=== PATIENT | female | born 1980 ===

== ENCOUNTER → 2018-10-09 | Outpatient (CLI) | payer OTHER ==
[2018-10-09 14:57] VITALS: BP 151/97; PULSE 80; RESP 18; TEMP 98.2; BMI 36.3
--- NOTE | 2018-10-09 15:53 | P.PN ---
Progress Note - Text Progress Note Date: 10/09/18 Michaela is a 37-year-old white female who underwent an ultrasound-guided core biopsy of a 1.7 cm highly suspicious mass at the 6 o'clock position in the right breast. Pathology revealed a grade 2 invasive ductal carcinoma. The lesion is ER/UT positive and HER-2 negative. The patient on ultrasound report is noted to have a upper outer quadrant 6 mm middle depth second lesion for which targeted ultrasound was recommended after biopsy results. If this lesion is seen on ultrasound a second ultrasound biopsy is recommended. If it is not seen on ultrasound we will address whether a stereo biopsy would be warranted. The pathology results of been discussed in detail with the patient. She understands and options have been given to her including lumpectomy with radiation therapy versus mastectomy plus or minus reconstruction. The patient at this time wishes a lumpectomy with radiation therapy to be performed. Of concern is the fact that the patient is 37 years old and we have talked about BRCA1 testing. The patient states that even if she were BRCA1 positive she would not have a mastectomy nor bilateral mastectomy at this time. She could be BRCA1 tested in the future. The patient also would undergo a sentinel node biopsy possible axillary node dissection. She understands the risks and benefits of this procedure. The patient is going to have a focused ultrasound of the right breast with attention to the possible 6 mm upper outer quadrant area performed today. Depending on results of this will depend whether further biopsy via stereo or proceeding to surgical intervention will be performed. Physical examination: Puncture site in the right breast is clean and dry evidence of any infection Impression: 1. 1.7 cm invasive ductal carcinoma right breast 2. Possible second site in the right breast for which targeted ultrasound is being performed Plan: 1. Probable lumpectomy of with radiation therapy sentinel node biopsy possible axillary node dissection 2. Patient does not wish to have BRCA1 testing done at this time 3. Complete evaluation of possible second site in the right breast to be evaluated with radiology prior to surgical intervention CC: Dr. Hooper
--- NOTE | 2018-10-09 16:03 | P.PN ---
Progress Note - Text Progress Note Date: 10/09/18 Addendum: Patient had a targeted ultrasound performed of the right breast. This did reveal a second area of concern for which ultrasound core biopsy is recommended. This will be scheduled in the near future. Depending on results of this the final surgical procedure may be altered.
--- NOTE | 2018-10-12 10:00 | USB ---
Reason for exam: clinical finding. History: Patient has history of breast cancer at age 37. Malignant US biopsy breast VAD RT of the right breast, September 29, 2018. Physical Findings: Breast exam performed by Dr. Copeland. US Breast RT Right complete breast ultrasound includes all four quadrants, the retroareolar region and axilla. Finding demonstrates a 16 x 13 x 20mm irregular lesion at 6 o'clock, biopsied and a 10 x 6 x 9mm solid, hypoechoic lesion at 10 o'clock for which a biopsy is recommended. These results were verbally communicated with the patient and result sheet given to the patient on 10/09/18. ASSESSMENT: Suspicious, BI-RAD 4 RECOMMENDATION: Ultrasound core biopsy of the right breast. Called with mammographic findings and has scheduled an appointment for the patient for 10/20/18 at 2:[address] Copeland. PRELIMINARY REPORT CALLED AND FAXED TO DR. COPELAND ON 10/12/18.
== END | disposition home or self-care (01) ==
LOC: WWCWWP 14:36 → MERGE 14:36
PROVIDERS: ATTEND Surgery
DX: R92.8 Other abnormal and inconclusive findings on diagnostic imaging of breast (principal)

== ENCOUNTER → 2018-10-20 | Day surgery (SDC) | payer OTHER ==
[2018-10-20 13:43] VITALS: RESP 16; BMI 36.3
[2018-10-20 15:03] VITALS: BP 145/84; PULSE 79; TEMP 98.2
--- NOTE | 2018-10-20 15:06 | USB ---
EXAMINATION TYPE: US biopsy breast VAD RT, MG diagnostic mammo RT wo CAD DATE OF EXAM: 10/20/2018 CLINICAL HISTORY: R92.8 ABNORMAL MAMMOGRAM. Abnormal ultrasound. Recently diagnosed right breast cancer on biopsy September 29, 2018 TECHNIQUE: Ultrasound guided core biopsy of right breast with clip placement and follow-up diagnostic two-view mammogram. COMPARISON: NONE FINDINGS: The procedure of ultrasound guided fine-needle aspiration and/or core biopsy was explained to the patient. Benefits, alternatives, and risks were discussed. An informed consent was then obtained. The patient was placed in supine positioning for imaging and for the procedure. Preprocedure imaging redemonstrates oval heterogeneous hypoechoic 8 x 6 mm lesion 10:00 position zone A. The overlying skin was prepped and draped in usual sterile fashion. Lidocaine buffered with bicarbonate was used as anesthetic into the skin and subcutaneous tissue up to area of concern in the right breast. Attempts at ultrasound guided fine-needle aspiration utilizing 18- gauge spinal needle were unsuccessful in aspirating fluid. At this point further anesthetic with lidocaine with epinephrine is given. Under ultrasound guidance, a 12-gauge vacuum assisted biopsy gun device was used to obtain 3 core samples. Following this, a biopsy clip was left in lesion. The patient tolerated the procedure well without any immediate complication. The patient was kept in the radiology department for short stay after the procedure and then discharged home in stable condition. Postprocedure mammogram shows successful deployment of second clip upper outer quadrant middle depth in the right breast. IMPRESSION: Successful, uncomplicated ultrasound guided core biopsy of second area of concern in the right breast, full pathology results to follow. Low to intermediate index of suspicion for this second lesion noted at time of procedure. Pathology Results: Benign RIGHT BREAST, TEN O'CLOCK, ULTRASOUND GUIDED CORE BIOPSY: Fibroadenoma/ fibroadenomatoid hyperplasia with associated columnar cell hyperplasia and background fibrocystic changes. Recommendation Follow up mammogram of the right breast in 6 months. BELLA
== END ==
LOC: MERGE 13:26 → RADUSWWP 13:26
PROVIDERS: ATTEND Surgery
DX: D24.1 Benign neoplasm of right breast (principal)
CPT/HCPCS: 88305; 77065; 19083; A4648; J2001

== ENCOUNTER → 2018-10-23 | Outpatient (CLI) | payer OTHER ==
[2018-10-23 11:24] VITALS: BP 158/104; PULSE 85; RESP 18; TEMP 99; BMI 36.3
== END ==
LOC: WWCWWP 10:32 → MERGE 10:32
PROVIDERS: ATTEND Surgery
DX: Z53.9 Procedure and treatment not carried out, unspecified reason (principal)

== ENCOUNTER 2018-10-27 06:32 | Day surgery (SDC) | payer OTHER ==
--- NOTE | 2018-10-23 11:49 | P.GSHP ---
History of Present Illness H&P Date: 10/23/18 Chief Complaint: Right breast cancer The patient is a 37-year-old white female who underwent a screening mammogram of the breast in July 2018. Was noted in the middle third of the right breast deep and below the nipple at the 6 o'clock position that she had an area of irregular focal asymmetry with an indistinct margin. An ultrasound was performed which revealed that the area was 1.7 cm in size. A core biopsy was obtained which revealed that this was a grade 2 invasive ductal carcinoma. The lesion was ER/GA positive and HER-2 negative. The patient was noted to have a second area in the right breast approximately 6 mm depth in the upper outer quadrant lesion for which ultrasound core biopsy was recommended this was performed on 10/20/2018 and was a 9. It revealed fibroadenomatoid/fibroadenoma hyperplasia with associated columnar cell hyperplasia and background fibrocystic changes. The patient herself did not feel any lesions of concern in her breast. She had no history of nipple discharge or skin changes. She no history of recent trauma to her breast or any history of infection in the breast. Despite the fact that she is 37 years old she did not want to undergo BRCA1 her genetic testing. She stated that she would not have a mastectomy if she could possibly have a lumpectomy even if she was a BRCA1 positive and may consider doing this in the future. The patient's case was presented at tumor board. Family history: 1. Maternal grandmother breast cancer postmenopausal Hormonal history: Menarche: 12 Pregnancies: 4, 3 children, one miscarriage first live at 20, press-fit: Yes Periods: Regular control pills: 20 years Hormones: None Past surgical history: 1. Cholecystectomy 2. Appendectomy Social history: Smoking: Negative Alcohol: Occasional Drugs: Negative - Constitutional Constitutional: Denies chills, Denies fever - EENT Eyes: denies blurred vision, denies pain Ears: deny: decreased hearing, tinnitus Ears, nose, mouth and throat: Denies headache, Denies sore throat - Breasts Breasts: bilateral: as per HPI - Cardiovascular Cardiovascular: Denies chest pain, Denies shortness of breath - Respiratory Respiratory: Denies cough, Denies 7 - Gastrointestinal Gastrointestinal: Denies abdominal pain, Denies diarrhea, Denies nausea, Denies vomiting - Genitourinary (Female) Genitourinary: Denies dysuria, Denies hematuria - Menstruation Menstruation: Reports period normal - Musculoskeletal Musculoskeletal: Denies myalgias - Integumentary Integumentary: Denies pruritus, Denies rash - Neurological Neurological: Denies numbness, Denies weakness - Psychiatric Psychiatric: Reports anxiety, Reports depression - Endocrine Endocrine: Denies fatigue, Denies weight change - Hematologic/Lymphatic Comment: none - Allergic/Immunologic Allergic/Immunologic: Reports seasonal allergies Past Medical History Past Medical History: No Reported History History of Any Multi-Drug Resistant Organisms: None Reported Past Surgical History: Appendectomy, Cholecystectomy Past Anesthesia/Blood Transfusion Reactions: No Reported Reaction Past Psychological History: No Psychological Hx Reported Smoking Status: Former smoker Past Alcohol Use History: Occasional Past Drug Use History: None Reported - Past Family History Mother Additional Family Medical History / Comment(s): maternal grandmother with breast cancer Medications and Allergies Home Medications Medication Instructions Recorded Confirmed Type Melatonin 5 mg PO HS 09/11/18 10/23/18 History Norgestimate-Ethinyl Estradiol 1 tab PO HS 09/11/18 10/23/18 History [Sprintec 28 Day Tablet] Vortioxetine Hydrobromide 20 mg PO HS 09/11/18 10/23/18 History [Trintellix] Cyclobenzaprine [Flexeril] 10 mg PO TID PRN 10/20/18 10/23/18 History Allergies Allergy/AdvReac Type Severity Reaction Status Date / Time Quinolones Allergy Rash/Hives Verified 10/23/18 11:19 Surgical - Exam - General obese - Eyes normal ocular movement, no icteric - ENT no hearing loss, no congestion - Neck no masses, trachea midline - Respiratory normal respiratory effort, clear to auscultation - Cardiovascular Rhythm: regular Heart Sounds: normal: S1, S2 - Abdomen Abdomen: soft, non tender, no guarding, no rigid, no rebound - Integumentary No icterus no abnormal pigmentation - Neurologic no disoriented, no combative - Musculoskeletal normal gait, normal posture - Psychiatric oriented to time, oriented to person, oriented to place, speech is normal, memory intact Breast examination: Right breast: Multi-positional exam no dominant masses or nodules of concern Right axilla: No adenopathy of concern Left breast: Multi-positional exam no dominant masses or nodules of concern Left axilla: No adenopathy of concern Tattoo noted across her back Results Radiographs reviewed, pathology results reviewed Assessment and Plan Assessment: Impression: 1. Right breast 1.7 cm invasive ductal carcinoma 2. Depression/anxiety 3. Premenopausal breast cancer recommended for genetic counseling patient does not want to do this at this time Plan: 1. Right breast needle localization lumpectomy, injection for sentinel node biopsy sentinel node biopsy possible axillary node dissection 2. Medical management of medical problems Cc:
[2018-10-23 14:08] VITALS: BMI 36.3
[~2018-10-27 06:32] MED LIST: DEXAMETHASONE SOD PHOSPHATE 10 MG/ML 1 ML VIAL IV ONE; HEPARIN SODIUM,PORCINE 5,000 UNIT/ML 1 ML VIAL SQ ONE; LACTATED RINGERS 1,000 ML IV SCH; LIDOCAINE 1% 20 ML VIAL (10MG/ML) FOR IV START INTRADERMA PRN; MIDAZOLAM 2 MG/2 ML VIAL IV PRN; ONDANSETRON 4 MG/2 ML VIAL IVP ONE; Pre Op ABX Message 1 EACH MISC MISCELLANE ONE; SCOPOLAMINE 1.5MG/72HR PATCH TRANSDERM ONE
[2018-10-27] MEDS ORDERED: ALPRAZolam 0.5 MG TAB PO ONE (07:14)
[2018-10-27] MEDS ORDERED: diphenhydrAMINE 50 MG/ML 1 ML VIAL IVP ONE ×2 (08:10→14:01)
[2018-10-27] MEDS ORDERED: SODIUM BICARB 4% 5 ML VIAL (0.48 MEQ/ML) MISCELLANE ONE (08:27)
[2018-10-27] MEDS ORDERED: LIDOCAINE 1% INJ 10MG/ML (20 ML MDV) SQ ONE (08:27)
--- NOTE | 2018-10-27 08:56 | NM ---
EXAMINATION TYPE: NM sentinel node injection DATE OF EXAM: 10/27/2018 COMPARISON: 09/29/2018 HISTORY: Right-sided breast cancer. TECHNIQUE AND FINDINGS: The procedure of sentinel lymph node injection was explained to the patient. The benefits, alternatives, and risks were discussed. An informed consent was then obtained. Overlying skin is cleaned with sterile alcohol. Following this, 534 uCi Tc99m Tilmanocept was inject ed in the upper outer aspect of the right nipple intradermally. The patient tolerated the procedure well without any immediate complication. The patient was kept in the radiology department for short stay after the procedure and then taken to surgery for surgical p rocedure what is presumed intraoperative gamma probe will be used for sentinel lymph node detection. IMPRESSION: Right breast radiotracer injection for sentinel node localization as above.
[2018-10-27] MEDS ORDERED: PHENYLEPHRINE-0.9% NACL SYG 1 MG/10 ML SYRINGE ONE (09:38)
[2018-10-27] MEDS ORDERED: HYDROmorphone (PF) 1 MG/ML ONE (09:38)
[2018-10-27] MEDS ORDERED: ROCURONIUM BROMIDE 10 MG/ML 10 ML VIAL IV ONE (09:38)
[2018-10-27] MEDS ORDERED: fentaNYL (PF) 50 MCG/ML 2 ML AMP ONE (09:38)
[2018-10-27] MEDS ORDERED: PROPOFOL 10 MG/ML 20 ML VIAL IV ONE (09:38)
[2018-10-27] MEDS ORDERED: ePHEDrine SULFATE/0.9% NACL/PF 50 MG/5 ML SYRINGE IV ONE (09:38)
[2018-10-27] MEDS ORDERED: LIDOCAINE 1% INJ 10MG/ML (20 ML MDV) ONE (09:38)
[2018-10-27] MEDS ORDERED: HEPARIN SODIUM,PORCINE 5,000 UNIT/ML 1 ML VIAL SQ ONE (09:47)
--- NOTE | 2018-10-27 09:49 | P.NAPBC ---
NAPBC Queries - NAPBC Queries Was patient's case review presented at [facility] tumor board? If no, comment.: Yes Was patient's pathology reviewed at [facility]? If no, comment.: Yes Was breast conservation surgery offered? If no, comment.: Yes Was sentinel node biopsy offered? If no, comment.: Yes Was diagnosis confirmed by percutaneous core biopsy? If no, comment.: Yes If mastectomy patient, was a preop referral to a reconstructive surgeon offered? : Yes (not a mastectomy patient)
[2018-10-27] MEDS ORDERED: LACTATED RINGERS 1,000 ML IV ONE (10:27)
--- NOTE | 2018-10-27 12:20 | P.OP ---
Date of Procedure: 10/27/18 Preoperative Diagnosis: Right breast cancer Postoperative Diagnosis: Same Procedure(s) Performed: Injection of methylene blue for lymphatic mapping, right axillary node dissection, needle localization lumpectomy with placement of BioSorb and tissue transfer Implants: biozorb Anesthesia: GETA Surgeon: Leigh Copeland Estimated Blood Loss (ml): 25 IV fluids (ml): 1,000 Pathology: other (Right breast tissue, axillary contents right) Condition: stable Disposition: PACU Indications for Procedure: Biopsy-proven right breast cancer Operative Findings: Dense breast tissue, suspicious palpable right axillary adenopathy Description of Procedure: The patient is a 37-year-old white female who underwent a core biopsy of an area of concern in the right breast. This was positive for invasive ductal carcinoma. Secondary underwent a core biopsy which was benign. Although the patient is 37 she defer genetic testing and wished only to proceed with lumpectomy possible sentinel node biopsy possible axillary node dissection. The patient was taken to the operating room and following induction of general anesthesia the neoprobe was used to interrogate the right axilla. No radioactivity was noted in the axilla although the patient had received an injection of the radioactive substance in radiology. There was radioactivity in the circumareolar area. Therefore 5 mL of half-strength methylene blue was used to inject the periareolar region and the breast was massaged for 3 minutes. Following this the breast and axilla were prepped and draped in a sterile fashion. The area of the axilla was approached initially. An incision was made and carried down to the pectoralis muscle. This was followed inferiorly into the axillary region. Again the region was interrogated using the neoprobe and no radioactivity was identified. Likewise no blue lymph node was identified. There was however palpable adenopathy and therefore an axillary dissection was performed. The pectoralis muscle was followed superiorly to the axillary vein. The tissues were then swept inferiorly being careful to identify and preserve the area of the long thoracic and thoracodorsal nerves. Several intercostal brachial nerves were excised in the process. The specimen was removed. After assured that hemostasis was attained the wound was irrigated. Otherwise Surgicel was placed in the area. The wound was again irrigated. No evidence of bleeding was identified. A #10 SHERRY drain was placed in the deep tissues were closed using 3-0 Vicryl suture. The skin was closed with a 4-0 Monocryl followed by Mike a nylon suture. The drain was secured using a nylon suture. Following this the area of the breast was approached. An incision was made and carried down to the hook of the needle. The surrounding tissue was excised. Posteriorly dissection was carried to the chest wall. The specimen was removed and sent for radiographic evaluation. The area of concern was removed. Prior to sending the specimen was painted for orientation. Following this the wound was irrigated. After assured that hemostasis was attained it was measured for a BioSorb placement. A 3 x 3 BioSorb was chosen. This was placed and the inferior tissues were freed to facilitate closure. Approximately 4 cm x 2 cm of tissue were freed. The deep tissues were closed using 3-0 Vicryl suture securing the BioSorb. The area was closed in layers. The skin was closed using a subcu tenia 4-0 Vicryl suture followed by subcuticular 4-0 Monocryl. Steri-Strips were applied. The patient tolerated the procedure in stable condition. All instrument and sponge counts were correct at the end of the case.
[2018-10-27] MEDS ORDERED: SODIUM CHLORIDE 0.9% 1,000 ML IV ONE ×2 (12:30)
[2018-10-27] MEDS: HYDROmorphone 0.5 MG/0.5 ML SYRINGE IVP PRN ×2 (12:47→12:56)
--- NOTE | 2018-10-27 12:47 | MM ---
EXAMINATION TYPE: MG pre op needle loc RT DATE OF EXAM: 10/27/2018 COMPARISON: 09/29/2018 CLINICAL HISTORY: 1.7 cm right-sided mass at the 6:00 position representing biopsy-proven invasive ductal carcinoma (grade 2) and ductal carcinoma in situ marked with a ribbon-shaped biopsy marker. TECHNIQUE: Needle localization with wire placement and surgical excision of area of concern in the right breast. FINDINGS: The procedure of needle localization with wire placement and than surgical excision was explained to the patient. Benefits, alternatives, and risks were discussed. An informed consent was then obtained. Preprocedural timeout was performed. The shortest pathway for procedure was chosen. Shortest pathway was medial to lateral approach. The overlying skin was prepped and draped in usual sterile fashion. Lidocaine buffered with bicarbonate was used as anesthetic into the skin and subcutaneous tissue up to the level of area of concern. A 7 cm needle was used. It was placed via a medial to lateral approach under mammographic guidance. Subsequent 90 degrees mammogram show the needle to be in satisfactory position relative to the targeted area. At this point, wire was placed and the needle was withdrawn. The wire was fixed to patient's skin. Images were marked for surgeon. The patient tolerated the procedure well without any immediate complication. The patient was kept in the radiology department for short stay after the procedure and then taken to surgery for surgical excision. Targeted ribbon- shaped biopsy marker, mammographic mass and wire are identified in specimen mammogram. The patient was kept in hospital for short stay after the procedure and then discharged home in stable condition. IMPRESSION: Successful, uncomplicated needle localization with wire placement and surgical excision of the targeted ribbon-shaped biopsy marker, mammographic mass in one year in the right breast at the 6:00 position representing the biopsy-proven invasive ductal carcinoma and DCIS, full pathology results to follow. Pathology Results: Malignant A. RIGHT AXILLARY CONTENTS, DISSECTION: Five of six lymph nodes positive for metastatic ductal adenocarcinoma with multiple areas of extranodal extension. B. RIGHT AXILLARY LYMPH NODE: One lymph node negative for metastatic adenocarcinoma. C. RIGHT BREAST, NEEDLE LOCALIZATION BIOPSY: 2.9 x 2.0 x 1.0 cm in greatest dimension moderately differentiated (Grade 2 of 3) infiltrating ductal carcinoma within 0.4 mm of the blue-green inked anterior inferior margin of resection. Lymph vascular space permeation as well as perineural space invasion is identified. Breast ancillary studies performed on [id number]. See Surgical Pathology Cancer Case Summary. Recommendation Appropriate oncologic management. MTDD
[2018-10-27] MEDS: MEPERIDINE 50 MG/ML SYRINGE IVP ONE ×2 (13:17→13:31)
[2018-10-27] MEDS ORDERED: NALOXONE 0.4 MG/ML 1 ML VIAL IV PRN (13:57)
[2018-10-27] MEDS ORDERED: HYDROmorphone 1 MG/ML 1 ML SYRINGE IV PRN (13:57)
[2018-10-27] MEDS ORDERED: ONDANSETRON 4 MG/2 ML VIAL IVP PRN (13:57)
[2018-10-27] MEDS: DEXTROSE 5%-0.45% NACL 1,000 ML IV SCH (17:20)
[2018-10-27] MEDS: HEPARIN SODIUM,PORCINE 5,000 UNIT/ML 1 ML VIAL SQ SCH ×2 (17:21→23:34)
[2018-10-27] MEDS: HYDROcodone/APAP 5-325MG 1 EACH TAB PO PRN (19:36)
[2018-10-27 21:10] VITALS: RESP 16
[2018-10-28] MEDS: DEXTROSE 5%-0.45% NACL 1,000 ML IV SCH (00:08)
[2018-10-28] MEDS: HYDROcodone/APAP 5-325MG 1 EACH TAB PO PRN (04:17)
--- NOTE | 2018-10-28 07:27 | P.PN ---
Subjective Progress Note Date: 10/28/18 Principal diagnosis: Right breast cancer Patient is a 37-year-old white female status post right breast lumpectomy and right axillary node dissection postop day #1. Postoperatively she is doing well. She is tolerating diet without difficulty. Her SHERRY drain is serous in nature. Objective - Vital Signs Vital signs: Vital Signs Temp 98.6 F 10/28/18 04:00 Pulse 82 10/28/18 04:00 Resp 16 10/28/18 04:00 BP 140/90 10/28/18 04:00 Pulse Ox 94 L 10/27/18 17:25 Intake & Output 10/27/18 10/28/18 10/28/18 18:59 06:59 18:59 Intake Total 1750 Output Total 182 290 Balance 1568 -290 Weight 111.584 kg Intake: IV 1750 Output: Drainage 7 40 Right Arm 7 40 Urine 150 250 Estimated Blood Loss 25 Other: # Voids 200 1 - Constitutional General appearance: Present: obese - EENT Eyes: Present: EOMI ENT: Present: hearing grossly normal - Respiratory Respiratory: bilateral: CTA - Cardiovascular Rhythm: regular Heart sounds: normal: S1, S2 - Gastrointestinal General gastrointestinal: Present: soft - Psychiatric Psychiatric: Present: A&O x's 3, appropriate affect, intact judgment & insight - Additional findings Additional findings: Incision axilla clean and dry, SHERRY drain serous Incision breast clean and dry No evidence of any infection Assessment and Plan Assessment: Impression: 1. Right breast 1.7 cm invasive ductal carcinoma 2. Depression/anxiety 3. Premenopausal breast cancer recommended for genetic counseling patient does not want to do this at this time 4. Postop day #1 right breast lumpectomy and axillary node dissection Plan: 1. Discharge home to be followed as an outpatient 2. Medical management of medical problems 3. Tis patient drain care Cc:
--- NOTE | 2018-10-28 07:37 | P.DS ---
Providers Date of admission: 10-27-18 Expected date of discharge: 10/28/18 Attending physician: Leigh Copeland Consults: 10/27/18 14:00 Consult Physician Routine Consulting Provider: Efrain Stewart Consult Reason/Comments: medical managment Do you want consulting provider notified?: Yes Primary care physician: [facility] Course: The patient is a 37-year-old white female who underwent a right breast lumpectomy and axillary node dissection. Postoperatively she has done well and is stable for discharge. Her pain is well-controlled. She is tolerating her diet without difficulty. Her SHERRY drain has serous drainage, 30 cc . Plan - Discharge Summary New Discharge Prescriptions: No Action Vortioxetine Hydrobromide [Trintellix] 20 mg PO HS Norgestimate-Ethinyl Estradiol [Sprintec 28 Day Tablet] 1 tab PO HS Melatonin 5 mg PO HS Cyclobenzaprine [Flexeril] 10 mg PO TID PRN PRN Reason: Pain ALPRAZolam [Xanax] 0.25 mg PO TID PRN PRN Reason: Anxiety Discharge Medication List Melatonin 5 mg PO HS 09/11/18 [History] Norgestimate-Ethinyl Estradiol [Sprintec 28 Day Tablet] 1 tab PO HS 09/11/18 [ History] Vortioxetine Hydrobromide [Trintellix] 20 mg PO HS 09/11/18 [History] Cyclobenzaprine [Flexeril] 10 mg PO TID PRN 10/20/18 [History] ALPRAZolam [Xanax] 0.25 mg PO TID PRN 10/23/18 [History] Follow up Appointment(s)/Referral(s): Leigh Copeland MD [STAFF PHYSICIAN] - 1-2 Days Activity/Diet/Wound Care/Special Instructions: do not drive until seen by DR. Orta may shower after 48 hours teach drain care Discharge Disposition: HOME SELF-CARE
[2018-10-28] MEDS: HEPARIN SODIUM,PORCINE 5,000 UNIT/ML 1 ML VIAL SQ SCH (07:54)
[2018-10-28 08:56] VITALS: BP 145/97; PULSE 77; TEMP 98.5
--- NOTE | 2018-11-05 08:01 | MM ---
MG Surgical Specimen RT EXAMINATION TYPE: MG pre op needle loc RT DATE OF EXAM: 10/27/2018 COMPARISON: 09/29/2018 CLINICAL HISTORY: 1.7 cm right-sided mass at the 6:00 position representing biopsy-proven invasive ductal carcinoma (grade 2) and ductal carcinoma in situ marked with a ribbon-shaped biopsy marker. TECHNIQUE: Needle localization with wire placement and surgical excision of area of concern in the right breast. FINDINGS: The procedure of needle localization with wire placement and than surgical excision was explained to the patient. Benefits, alternatives, and risks were discussed. An informed consent was then obtained. Preprocedural timeout was performed. The shortest pathway for procedure was chosen. Shortest pathway was medial to lateral approach. The overlying skin was prepped and draped in usual sterile fashion. Lidocaine buffered with bicarbonate was used as anesthetic into the skin and subcutaneous tissue up to the level of area of concern. A 7 cm needle was used. It was placed via a medial to lateral approach under mammographic guidance. Subsequent 90 degrees mammogram show the needle to be in satisfactory position relative to the targeted area. At this point, wire was placed and the needle was withdrawn. The wire was fixed to patient's skin. Images were marked for surgeon. The patient tolerated the procedure well without any immediate complication. The patient was kept in the radiology department for short stay after the procedure and then taken to surgery for surgical excision. Targeted ribbon-shaped biopsy marker, mammographic mass and wire are identified in specimen mammogram. The patient was kept in hospital for short stay after the procedure and then discharged home in stable condition. IMPRESSION: Successful, uncomplicated needle localization with wire placement and surgical excision of the targeted ribbon-shaped biopsy marker, mammographic mass in one year in the right breast at the 6:00 position representing the biopsy-proven invasive ductal carcinoma and DCIS, full pathology results to follow. RECOMMENDATION: Surgical consultation of the right breast. Appropriate oncologic management. BELLA
== END 2018-10-28 09:20 | disposition home or self-care (01) ==
LOC: OR 06:32 → MERGE 06:32 → 4FBP 12:11 → OR 10-28 09:20
PROVIDERS: ATTEND Surgery
DX: C50.911 Malignant neoplasm of unspecified site of right female breast (principal); Z17.0 Estrogen receptor positive status [ER+]; C77.3 Secondary and unspecified malignant neoplasm of axilla and upper limb lymph nodes; F41.9 Anxiety disorder, unspecified; Z80.3 Family history of malignant neoplasm of breast; Z87.891 Personal history of nicotine dependence; Z79.3 Long term (current) use of hormonal contraceptives; Z79.899 Other long term (current) drug therapy; Z88.1 Allergy status to other antibiotic agents
CPT/HCPCS: 81025; 88307; 76098; 19281; 38792; 19301; 38525; 15777; A4648; A9520; J1200; J1644 ×2; J1100; J2175; J2405; J2001; J3010; J1170 ×2; J2370; J2704

== ENCOUNTER → 2018-10-30 | Outpatient (CLI) | payer OTHER ==
[2018-10-30 09:32] VITALS: BP 150/95; PULSE 79; RESP 18; TEMP 98.5; BMI 36.3
--- NOTE | 2018-10-30 10:05 | P.PN ---
Progress Note - Text Progress Note Date: 10/30/18 Deedee is a 37-year-old white female status post right breast lumpectomy and axillary node dissection on [id number]. Postoperatively she has done well with no complaints. Her SHERRY drain output has been minimal and serous in nature. The patient's pain is controlled with [place]. Physical examination: Lungs: Clear Heart: Regular rate and rhythm Abdomen: Soft Incision: Axilla clean and dry, SHERRY drain serous Breast right slightly boggy and mild erythema of the skin felt to be related to the methylene blue injection Incision right breast clean and dry Impression: 1. Patient postop day #3 right breast lumpectomy Axillary Node dissection 2. Patient doing well at this time Plan: 1. SHERRY drain removed 2. appointment with medical and radiation oncology 3. Follow-up here in approximately 10 days Pathology is pending at this time further recommendation depending on results of the pathology CC: Dr. Rufus Moore
== END | disposition home or self-care (01) ==
LOC: WWCWWP 09:05 → MERGE 14:20
PROVIDERS: ATTEND Surgery
DX: Z53.9 Procedure and treatment not carried out, unspecified reason (principal)

== ENCOUNTER → 2018-11-07 | Outpatient (CLI) | payer OTHER ==
--- NOTE | 2018-11-09 10:23 | PE ---
EXAMINATION TYPE: PET CT fusion skull to thigh DATE OF EXAM: 11/07/2018 COMPARISON: There are no prior CTs at this location for comparison. Prior PET/CT: There are no prior PET CTs at this location for comparison. HISTORY: Breast cancer TECHNIQUE: Following the intravenous administration of 10.87 mCi of F-18 FDG, whole body images are performed from the skull base to the midthigh. Images are reviewed on the computer in the coronal, a xial, and sagittal planes. Reconstructed rotating images are created on independent workstation and reviewed on the computer. A localization and attenuation correction CT is performed in conjunction with the PET scan. DLP: 467.04 mGycm SCAN: Initial Blood glucose: 79 mg/dL Average Mediastinum SUV: 1.5 Average Liver SUV: 2.58 FINDINGS: NECK: No abnormal uptake THORAX: No abnormal uptake. There is some mild inflammatory change at the right axillary tail surgery site. ABDOMEN: No abnormal uptake PELVIS: No abnormal uptake OSSEOUS STRUCTURES: No abnormal uptake LOCALIZATION CT: There is a 7.9 x 4.2 cm hypoechoic dense collection lateral to the pectoralis muscle s within the axillary tail on the right breast could be a seroma or hematoma. There are some small ax illary lymph nodes present on the right. The ascending thoracic aorta at the level of main pulmonary artery is 3.2 cm patent main pulmonary artery the bifurcation is 2.9 cm. COMPARISON: No comparison studies. IMPRESSION: 1. No suspicious uptake to suggest metastatic disease. 2. Suspected hematoma or seroma at the surgery site right axillary breast
== END | disposition home or self-care (01) ==
LOC: RADPETMAIN 14:23
PROVIDERS: ATTEND Internal Medicine Hematology & Oncology
DX: C50.511 Malignant neoplasm of lower-outer quadrant of right female breast (principal)
CPT/HCPCS: 78815; A9552

== ENCOUNTER → 2018-11-12 | Outpatient (CLI) | payer OTHER ==
[2018-11-12 15:23] VITALS: BP 138/91; PULSE 88; RESP 20; TEMP 99; BMI 35.7
--- NOTE | 2018-11-12 15:56 | P.PN ---
Subjective Progress Note Date: 11/12/18 Patient is a 37-year-old white female status post right breast axillary dissection and right breast lumpectomy on [id number]. She had 5 of 7 nodes positive for metastatic ductal adenocarcinoma. She had multiple areas of extranodal extension. The lumpectomy site revealed a 2.9 cm cancer grade 2 of 3 within 0.4 mm of the blue-green anterior anterior/inferior margin of resection. There was no tumor on ink. There was DCIS within 0.6 mm of the anterior margin. Her case will be presented at tumor board. She is recommended to undergo chemotherapy and radiation therapy. She wishes to forego additional excision if possible. Objective - Vital Signs Vital signs: Vital Signs Temp 99 F 11/12/18 15:16 Pulse 88 11/12/18 15:16 Resp 20 11/12/18 15:16 BP 138/91 11/12/18 15:16 Pulse Ox 100 11/12/18 15:16 Intake & Output 11/11/18 11/12/18 11/12/18 18:59 06:59 18:59 Weight 109.769 kg - Constitutional General appearance: Present: obese - EENT Eyes: Present: EOMI ENT: Present: hearing grossly normal - Respiratory Respiratory: bilateral: CTA - Cardiovascular Rhythm: regular Heart sounds: normal: S1, S2 - Integumentary Integumentary Comment(s): Axillary incision, slightly swollen, incision clean and dry no evidence of infection Breast; incision clean and dry Assessment and Plan Assessment: Impression: 1. Postop right breast axillary dissection and lumpectomy Plan: 1. Represent case at tumor board 2. Follow-up with medical oncology and radiation oncology 3. Follow-up in 3 months CC: Dr. Hooper
== END ==
LOC: WWCWWP 14:35 → MERGE 14:40
PROVIDERS: ATTEND Surgery
DX: Z53.9 Procedure and treatment not carried out, unspecified reason (principal)

== ENCOUNTER 2018-11-20 08:30 | Day surgery (SDC) | payer OTHER ==
[2018-11-19 09:14] VITALS: BMI 36.1
--- NOTE | 2018-11-20 07:56 | P.GSHP ---
History of Present Illness H&P Date: 11/20/18 CHIEF COMPLAINT: Lymphoma. HISTORY OF PRESENT ILLNESS: The patient is a 37-year-old female diagnosed with breast cancer. She needs a Mediport placement for chemotherapy. PAST MEDICAL HISTORY: See list PAST SURGICAL HISTORY: See list CURRENT MEDICATIONS: See list. ALLERGIES: See list. SOCIAL HISTORY: No active tobacco or alcohol use. FAMILY HISTORY: Noncontributory. REVIEW OF ORGAN SYSTEMS: CONSTITUTIONAL: Has weight loss. PHYSICAL EXAMINATION: Vital signs: Stable GENERAL: Well developed and in no acute distress. Pleasant. HEENT: No sclera icterus. Extraocular movements grossly intact. Moist buccal mucosa. Head is atraumatic, normocephalic. Hears conversational speech. No nasal drainage. NECK: Supple without lymphadenopathy. No JV distention. CHEST: Non-labored respirations and equal bilateral excursions. CARDIOVASCULAR: Regular rate and rhythm. Palpable 2+ radial pulses. ABDOMEN: Nontender. MUSCULOSKELETAL: No clubbing, cyanosis or edema. NEUROLOGIC: No focal or lateralizing signs. PSYCH: Appropriate affect. Alert and oriented to person, place and time. ASSESSMENT: 1. Breast cancer 2. Need for chemotherapeutic access. PLAN: 1. Agree with Port-A-Cath placement. Past Medical History Past Medical History: Cancer Additional Past Medical History / Comment(s): Right Breast Cancer 10/2018 History of Any Multi-Drug Resistant Organisms: None Reported Past Surgical History: Appendectomy, Breast Surgery, Cholecystectomy Additional Past Surgical History / Comment(s): Right Breast Lumpectomy 10/2018 Past Anesthesia/Blood Transfusion Reactions: No Reported Reaction Smoking Status: Former smoker - Past Family History Mother Additional Family Medical History / Comment(s): Maternal grandmother with breast cancer. Medications and Allergies Home Medications Medication Instructions Recorded Confirmed Type Melatonin 5 mg PO HS 09/11/18 11/19/18 History Norgestimate-Ethinyl Estradiol 1 tab PO HS 09/11/18 11/19/18 History [Sprintec 28 Day Tablet] Vortioxetine Hydrobromide 20 mg PO HS 09/11/18 11/19/18 History [Trintellix] Cyclobenzaprine [Flexeril] 10 mg PO TID PRN 10/20/18 11/19/18 History ALPRAZolam [Xanax] 0.25 mg PO TID PRN 10/23/18 11/19/18 History Elderberry Fruit and Flower [Black 1 each PO DAILY 11/19/18 11/19/18 History Elderberry 575 mg Cap] Allergies Allergy/AdvReac Type Severity Reaction Status Date / Time Quinolones Allergy Rash/Hives Verified 11/19/18 08:23
[~2018-11-20 08:30] MED LIST changes: -DEXAMETHASONE SOD PHOSPHATE 10 MG/ML 1 ML VIAL IV ONE; -HEPARIN SODIUM,PORCINE 5,000 UNIT/ML 1 ML VIAL SQ ONE; -ONDANSETRON 4 MG/2 ML VIAL IVP ONE; -SCOPOLAMINE 1.5MG/72HR PATCH TRANSDERM ONE; +ceFAZolin IN SWFI 2 GM/20 ML SYRINGE IVP ONE; +fentaNYL (PF) 50 MCG/ML 2 ML AMP IV PRN; +fentaNYL (PF) 50 MCG/ML 2 ML AMP IVP PRN
[2018-11-20 09:12] VITALS: RESP 16; TEMP 98.1
[2018-11-20] MEDS ORDERED: ONDANSETRON 4 MG/2 ML VIAL IVP ONE (09:14)
[2018-11-20] MEDS ORDERED: fentaNYL (PF) 50 MCG/ML 2 ML AMP ONE (10:48)
[2018-11-20] MEDS ORDERED: PROPOFOL 10 MG/ML 20 ML VIAL IV ONE (10:48)
[2018-11-20] MEDS ORDERED: LIDOCAINE 1% INJ 10MG/ML (20 ML MDV) ONE (10:48)
[2018-11-20] MEDS ORDERED: MIDAZOLAM 2 MG/2 ML VIAL ONE (10:48)
[2018-11-20] MEDS ORDERED: ceFAZolin 1,000 MG VIAL ONE (10:48)
[2018-11-20] MEDS ORDERED: KETAMINE 10 MG/ML 20 ML VIAL ONE (10:48)
[2018-11-20] MEDS ORDERED: SODIUM CHLORIDE 0.9% 50 ML with ceFAZolin 2,000 MG IV ONE ×2 (11:18)
[2018-11-20] MEDS ORDERED: BUPIVACAIN-EPI 0.25%-1:200,000 30 ML VIAL SQ ONE (11:25)
[2018-11-20] MEDS ORDERED: HEPARIN SODIUM,PORCINE 10,000 UNIT/ML 1 ML VIAL IV ONE ×2 (11:31→11:33)
[2018-11-20] MEDS ORDERED: HEPARIN SODIUM,PORCINE 100 UNIT/ML 5 ML VIAL IV ONE ×3 (11:36)
--- NOTE | 2018-11-20 12:13 | P.OP ---
Date of Procedure: 11/20/18 Description of Procedure: SURGEON: YANCY BAIRES MD PNEUDRAULIC SYSTEMS MECHANIC: None. PREOPERATIVE DIAGNOSES: 1. Breast cancer, right 2. Need for chemotherapeutic access. 3. Morbid obesity due to excess calories, BMI 36.2 4. Generalized anxiety disorder POSTOPERATIVE DIAGNOSES: 1. Breast cancer, right 2. Need for chemotherapeutic access. 3. Morbid obesity due to excess calories, BMI 36.2 4. Generalized anxiety disorder PROCEDURES PERFORMED: 1. Ultrasound guided central venous access of the right internal jugular venous vein. 2. Fluoroscopic guidance for central venous access right internal jugular vein less than 1 seconds. 3. Placement of right internal jugular power port 6 [place] by [employer], [employer] Plus Port ANESTHESIA: IV sedation with local. ESTIMATED BLOOD LOSS: 5 mL. SPECIMENS REMOVED: None. COMPLICATIONS: None. INDICATIONS: The patient is a 37-year-old female recently diagnosed with breast cancer She presents for chemotherapeutic access. Benefits and risks of surgical intervention were described including bleeding, infection, mechanical problems with his port. Informed consent was obtained. DESCRIPTION OR PROCEDURE: Patient was brought into the operating room, laid in supine position. After adequate IV sedation, the chest and right neck were prepped and draped in a standard sterile fashion including the shoulder with ChloraPrep. Timeout protocol was confirmed with the surgical team regarding the patient's name, procedure to be performed including preoperative medications for which she received IV antibiotics. Bilateral SCDs were placed. An ultrasound was used to capture views of the right internal jugular vein including right carotid artery, which was patent and without thrombus along its course. The right IJ was then localized using anesthetic for the skin. A 16 Mal[place]ian needle was used to access the IJ. A guidewire was advanced into the IJ with dark nonpulsatile venous blood. Two fingerbreadths distal to the clavicle, on the lateral third, a transverse 1.5 to 2 cm incision was deepened into the skin after localizing the skin. A pocket was created for the port. The port on the back table was flushed with heparinized saline and then attached to the catheter tubing. An adapter was fastened to the actual port site over the tubing. The port easily had fit snug into the pocket. A subcutaneous tunneler was placed along the open end of the tubing and brought out through the separate stab incision. Fluoroscopic guidance confirmed no kinking along the tubing and the port site. Next, the J-wire was exchanged for a catheter sheath for which the tubing was cut to 20 cm and then advanced through the catheter sheath. The Peel-away sheath was then removed and the tubing was secured at the junction of the superior vena cava as well as the right atrium. This was all done under fluoroscopic guidance under 1 seconds. Easy pullback as well as return and aspiration was obtained of the port site. The skin incision was closed using layers using 3-0 Vicryl for the subcu followed by 4-0 Monocryl in a running subcuticular fashion. At the stick site this was also reapproximated using 4-0 Monocryl. The incisions were covered with Optifoam, The skin was cleansed and Exofin liquid glue was applied. Optifoam dressing was placed over the port site. A total of 20 mL of local anesthetic was placed. At the end of the procedure, needle, sponge, and instrument count was verified correct by director medical surgical. Heparin lock of 5 mL was placed. The patient was awoken and pain free and taken to the second stage postanesthesia care unit. The patient tolerated the procedure well. FINDINGS: 1. No thrombus encountered along the right carotid artery or internal jugular vein. 2. Access of the right internal jugular vein under ultrasound guidance. 3. Fluoroscopy of less than 1 seconds. Plan - Discharge Summary New Discharge Prescriptions: No Action Vortioxetine Hydrobromide [Trintellix] 20 mg PO HS Norgestimate-Ethinyl Estradiol [Sprintec 28 Day Tablet] 1 tab PO HS Melatonin 5 mg PO HS Cyclobenzaprine [Flexeril] 10 mg PO TID PRN PRN Reason: Pain ALPRAZolam [Xanax] 0.25 mg PO TID PRN PRN Reason: Anxiety Elderberry Fruit and Flower [Black Elderberry 575 mg Cap] 1 each PO DAILY Discharge Medication List Melatonin 5 mg PO HS 09/11/18 [History] Norgestimate-Ethinyl Estradiol [Sprintec 28 Day Tablet] 1 tab PO HS 09/11/18 [ History] Vortioxetine Hydrobromide [Trintellix] 20 mg PO HS 09/11/18 [History] Cyclobenzaprine [Flexeril] 10 mg PO TID PRN 10/20/18 [History] ALPRAZolam [Xanax] 0.25 mg PO TID PRN 10/23/18 [History] Elderberry Fruit and Flower [Black Elderberry 575 mg Cap] 1 each PO DAILY [History] Follow up Appointment(s)/Referral(s): Yancy Baires MD [STAFF PHYSICIAN] - As Needed Patient Instructions/Handouts: Implanted Venous Access Port (DC), How to Care for Your Implanted Venous Access Port (DC) Activity/Diet/Wound Care/Special Instructions: No lifting over 4 pounds for 4 days along the right arm. No wide motions of the right arm. Sleep on elevated pillow 2-3 to prevent further bruising. Expect bruising for 1 week which should dissipate in 2 weeks. Take Tylenol for pain. Avoid vitamin E, garlic, fish oil which causes bleeding for the next 3 days. Discharge Disposition: HOME SELF-CARE
--- NOTE | 2018-11-20 12:30 | XR ---
EXAMINATION TYPE: XR chest 1V portable DATE OF EXAM: 11/20/2018 COMPARISON: NONE HISTORY: Line placement TECHNIQUE: Single frontal view of the chest is obtained. FINDINGS: There is a right-sided Mediport with its distal tip terminating in the superior vena cava. No postprocedural pneumothorax. Bilateral pleural thickening may be reactive. Low lung volumes accen tuate the pulmonary vasculature particularly in the right infrahilar region. Cardiomediastinal silhou ette is upper limits of normal. Minimal bibasilar atelectasis is seen. IMPRESSION: Right-sided Mediport placement terminating in the superior vena cava.
[2018-11-20 12:49] VITALS: BP 132/85; PULSE 77
--- NOTE | 2018-11-20 14:25 | FL ---
Fluoroscopy HISTORY: Port-A-Cath placement 1 seconds fluoroscopy time supplied to the referring clinician. 1 intraoperative C-arm images docume nt the procedure. See dictated report from general surgery.
== END 2018-11-20 13:10 | disposition home or self-care (01) ==
LOC: OR 08:30
PROVIDERS: ATTEND Surgery Plastic and Reconstructive Surgery
DX: C50.911 Malignant neoplasm of unspecified site of right female breast (principal); E66.01 Morbid (severe) obesity due to excess calories; Z68.36 Body mass index [BMI] 36.0-36.9, adult; F41.1 Generalized anxiety disorder; F32.9 Major depressive disorder, single episode, unspecified; Z79.3 Long term (current) use of hormonal contraceptives; Z79.899 Other long term (current) drug therapy; Z88.1 Allergy status to other antibiotic agents; Z90.49 Acquired absence of other specified parts of digestive tract; Z87.891 Personal history of nicotine dependence
CPT/HCPCS: 81025; 77001; 71045; 36561; C1788; J2250; J1644; J1642; J2405; J0690 ×2; J2001; J3010; J2704

== ENCOUNTER → 2019-02-11 | Outpatient (CLI) | payer OTHER ==
[2019-02-11 09:50] VITALS: BP 126/91; PULSE 80; RESP 16; TEMP 98.2; BMI 36.1
--- NOTE | 2019-02-11 10:26 | P.PN ---
Subjective Progress Note Date: 02/11/19 Principal diagnosis: right breast cancer Michaela is a 38-year-old white female status post right breast lumpectomy and axillary node dissection on [id number]. She had 5-7 nodes positive for metastatic ductal adenocarcinoma. She had multiple areas of extranodal extension. The l umpectomy site revealed a 2.9 cm cancer grade 2 with 8.4 mm margin at the anterior inferior margin of resection. There was no tumor on ink. There was DCIS within 0.6 mm of the anterior margin. At the present time she is receiving chemotherapy. She has 2 more treatments. Following this she will undergo radiation therapy. The patient did have some nodularity near the surgical site approximately 2 weeks ago. Otherwise she has no complaints. The patient states that on examination there was some concern that a lump may be felt on the left breast and she was recommended to undergo an MRI which is scheduled for the near future. The patient had genetic testing done which was negative. History: Negative for cancer ROS: HEENT: sores in nose with chemo but resolved, alpoecia Lungs: Negative Heart: Negative GI: Negative : Negative Musculoskeletal: Negative Objective - Vital Signs Vital signs: Vital Signs Temp 98.2 F 02/11/19 09:46 Pulse 80 02/11/19 09:46 Resp 16 02/11/19 09:46 BP 126/91 02/11/19 09:46 Pulse Ox 99 02/11/19 09:46 Intake & Output 02/10/19 02/11/19 02/11/19 18:59 06:59 18:59 Weight 111.13 kg - Exam BMI 36.2 - Constitutional General appearance: Present: obese - EENT Eyes: Present: EOMI ENT: Present: hearing grossly normal - Neck Neck: Present: normal ROM - Respiratory Respiratory: bilateral: CTA - Cardiovascular Rhythm: regular Heart sounds: normal: S1, S2 - Gastrointestinal General gastrointestinal: Present: soft - Integumentary Integumentary Comment(s): Well-healed incisions right axilla and right breast from prior lumpectomy - Musculoskeletal Musculoskeletal: Present: gait normal - Psychiatric Psychiatric: Present: A&O x's 3, appropriate affect, intact judgment & insight - Additional findings Additional findings: Breast examination: Right breast slightly smaller than left breast secondary to surgery Incisions clean and dry well-healed Multiple positional exam no evidence of recurrent disease Right axilla: No adenopathy of concern Left breast: Multi-positional exam no dominant masses or nodules of concern Left axilla: No adenopathy of concern Assessment and Plan Assessment: Impression: 1. Right breast status post lumpectomy and axillary node dissection for right breast cancer. 2. Patient presently undergoing chemotherapy 3. Patient to undergo radiation therapy following the chemotherapy 4. Bilateral breast MRI secondary to some concerns about probable change in the left breast 5. Patient felt some changes in her right breast but this appears to be postoperative in nature 6. No evidence of recurrent cancer Plan: 1. Continue chemotherapy 2. Radiation therapy 3. Follow-up. After breast MRIs CC: Dr. Hooper, DR. Low
== END ==
LOC: WWCWWP 09:03
PROVIDERS: ATTEND Surgery
DX: Z53.9 Procedure and treatment not carried out, unspecified reason (principal)

== ENCOUNTER → 2019-02-22 | Outpatient (CLI) | payer OTHER ==
--- NOTE | 2019-02-23 14:54 | BMR ---
EXAMINATION TYPE: MR breast BILAT wo/w con DATE OF EXAM: 02/22/2019 COMPARISON: Outside screening exam dated 07/22/2018 and outside diagnostic right mammogram as well as breast ultrasound dated 08/06/2018. HISTORY: Personal history of breast cancer (right-sided invasive ductal carcinoma and DCIS with the p rimary mass measuring 1.7 cm at the 6:00 position. This was treated with lumpectomy and chemotherapy in October 2018. The patient denies radiation. Patient also describes bilateral palpable abnormaliti es on the screening sheet. TECHNIQUE: A series of fat and water weighted images in the long and short axis views of both breasts are obtained in conjunction with dynamic contrast MRI with subtraction technique. The patient was i njected with 11.5 mL intravenous Gadavist gadolinium contrast. Three-dimensional and additional pos tprocessing imaging is created on independent workstation and reviewed during official interpretation of this study. FINDINGS: The breasts are composed of scattered fibroglandular tissue. There is mild symmetric backgr ound parenchymal enhancement. Lumpectomy changes are seen on the right from prior lumpectomy of the 6 :00 mass and middle lobes. The 11:00 cyst seen on the ultrasound of 2018 at an outside institution wi thin the right breast appears to have involuted as there is a 4 mm cyst at this location. Left breast cyst at the 8:00 position measures 5 mm. Other scattered left-sided sub-4 mm T2 hyperintense nonenha ncing cysts are seen. No suspicious axillary, internal mammary, or intramammary adenopathy is seen. There is evidence of ri ght axillary node dissection with very minimal enhancement of the granulation tissue on postcontrast first run image [id number] and subtraction image [id number]. Susceptibility artifact from a surgical clip is al so seen within the upper medial supraclavicular region. IMPRESSION: BI-RADS 2-benign findings. Annual diagnostic mammography is recommended as well as consideration for annual breast MRI given close surveillance is recommended for enhancing granulation tissue within the right axilla.
== END | disposition home or self-care (01) ==
LOC: RADMRIMAIN 06:42
DX: C50.111 Malignant neoplasm of central portion of right female breast (principal)
CPT/HCPCS: C8908; A9585; 77049

== ENCOUNTER → 2019-02-26 | Outpatient (CLI) | payer OTHER ==
--- NOTE | 2019-02-26 13:37 | P.PN ---
Progress Note - Text Progress Note Date: 02/26/19 Michaela is a 38-year-old white female status post right breast lumpectomy, and axillary node disecction on 10-27-18. She had 5-7 nodes positive for metastatic ductal adenocarcinoma. She has multiple areas of extranodal extension. The lumpectomy site revealed a 2.9 cm cancer grade 2. The patient is presently receiving chemotherapy her last treatment was approximately a week ago. On today's evaluation she was noted to have a low-grade fever of 99.1. The patient herself is not complaining of anything. She did have an MRI performed of both breast and [id number]. This was benign BIRADS 2 and recommendation for annual diagnostic mammography as well as possible MRI was made. Physical exam: Lungs: Clear Heart: Regular rate and rhythm Abdomen: Soft nontender Breasts: No evidence of any infection and the breast Impression: 1. Staged T2 N2 M0 ES/OK positive HER-2/aries negative grade 2 stage IIa right breast cancer 2. Patient presently receiving chemotherapy 3. MRI benign of both breast 4. Low-grade temperature Plan: 1. Continue chemotherapy as per medical oncology 2. Radiation therapy after the chemotherapy 3. Follow-up here in 4 months 4. Follow-up with medical oncology regarding low-grade temperature no obvious source on today's visit CC: Dr. Hooper
== END ==
LOC: WWCWWP 12:36
PROVIDERS: ATTEND Surgery
DX: Z53.9 Procedure and treatment not carried out, unspecified reason (principal)

== ENCOUNTER → 2019-07-09 | Outpatient (CLI) | payer OTHER ==
[2019-07-09 14:38] VITALS: BP 126/85; PULSE 77; RESP 18; TEMP 98.4; BMI 36.4
--- NOTE | 2019-07-09 15:09 | P.PN ---
Subjective Progress Note Date: 07/09/19 Principal diagnosis: stage IIA right breast cancer Michaela is a 38-year-old white female status post right breast lumpectomy and axillary node dissection for a T1c, and 2, M0 moderately differentiated infiltrating ductal carcinoma of the right breast. This was grade 2 with ductal carcinoma in situ present. Hair. Positive and HER-2 negative. 507 axillary nodes were positive with extranodal extension. She had adjuvant chemotherapy with 4 courses of 80see followed by Taxol. The patient also received adjuvant radiation therapy and received a total of 6000 cGY delivered to the primary site. The patient has had a PET scan performed in October 2018 which did not show any evidence of metastatic disease. There was a suspected hematoma or seroma at the surgery site of the right axillary breast tissue. Patient also had bilateral breast MRIs performed in February 2019 which revealed a question of some granulation tissue in the right axilla for which a repeat MRI at 1 year was recommended. The patient states he believes her last mammogram was in September 2018. The patient was started on tamoxifen today. The patient has no complaints at this time she is not complaining of any pain or changes in her breast. She is doing well. 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 Musculoskeletal: Leg pain Neurologic: Negative Hematologic: Negative ALLERGIES: Seasonal Objective - Vital Signs Vital signs: Vital Signs Temp 98.4 F 07/09/19 14:33 Pulse 77 07/09/19 14:33 Resp 18 07/09/19 14:33 BP 126/85 07/09/19 14:33 Pulse Ox 98 07/09/19 14:33 Intake & Output 07/08/19 07/09/19 07/09/19 18:59 06:59 18:59 Weight 112.037 kg - Exam BMI 36.5 - Constitutional General appearance: Present: obese - EENT Eyes: Present: EOMI ENT: Present: hearing grossly normal - Neck Neck: Present: normal ROM - Respiratory Respiratory: bilateral: CTA - Cardiovascular Rhythm: regular Heart sounds: normal: S1, S2 - Gastrointestinal General gastrointestinal: Present: soft - Integumentary Integumentary: Present: normal turgor - Musculoskeletal Musculoskeletal: Present: gait normal - Psychiatric Psychiatric: Present: A&O x's 3, appropriate affect, intact judgment & insight - Additional findings Additional findings: breast exam: Right breast: Multi-positional exam no dominant masses or nodules of concern, the area is slightly larger than on the left side related to radiation, there was scar from prior surgery Right axilla: No adenopathy of concern Left breast: Multi-positional exam no dominant masses or nodules of concern Left axilla: No adenopathy of concern Assessment and Plan Assessment: Impression: 1. Patient status post right breast lumpectomy and an axillary node dissection for stage II. Breast cancer 2. No evidence of recurrent cancer at this time 3. Fibrocystic breast changes 4. Patient due for bilateral mammogram most likely in September 14. Patient started on tamoxifen 6. Family history of cancer Plan: 1. Tamoxifen as per medical oncology 2. Follow-up here in 4 months time with bilateral mammogram 3. Medical management of medical conditions Cc: Dr. Hooper
== END | disposition home or self-care (01) ==
LOC: WWCWWP 14:13
PROVIDERS: ATTEND Surgery
DX: Z53.9 Procedure and treatment not carried out, unspecified reason (principal)

== ENCOUNTER → 2019-07-30 | Outpatient (CLI) | payer OTHER ==
[2019-07-30 14:39] VITALS: BP 123/81; PULSE 81; RESP 16; TEMP 98.4; BMI 37.5
--- NOTE | 2019-07-30 15:16 | P.GSHP ---
History of Present Illness H&P Date: 07/30/19 Chief Complaint: right breast cancer Michaela is a 38 year old white female with a diagnosis of right breast cancer diagnosed in September of 2018. She had a lumpectomy and axillary node dissection secondary to positive axillary nodes. Postoperatively she underwent chemotherapy for 8 treatments. She finished that in January 2019. She had radiation therpy and finished that in April of 2019. She is going to start tamoxifen. She is doing this through Dr. Low. The patient states that her right breast has been swollen and painful for approximately 2 weeks. She is presently on Keflex. This is improving on the Keflex. The patient has not had any fever or chills. The patient had an ultrasound done Friday in , this had nonspecific edema in interfascial fluid without a drainable fluid collection. There was possible mild diffuse skin thickening as well.. The patient had a CBC on and her white blood cell count at that time was 2.5. Michaela was last seen here 07/09/2019. The patient's tumor was a T1c, and 0, M0 he had a positive HER-2 negative tumor. A PET scan was performed in October 2018 which did not show any evidence of metastatic disease. The patient had bilateral breast MRIs in February 2019 which revealed a question of some gra nulation tissue in the right axilla posterior repeat MRI at 1 year was recommended. The patient's past mammogram was in fall. The patient states that the changes in her breast occurred after she started physical therapy for her right arm. This was approximately 3 weeks ago. Family history: Maternal grandmother: Lung cancer Wall history: Menarche: 12 , bresat fed: Yes, age at first : 20 .: Irregular control pills: On them now taking them for 10 years, supposed to start tamoxifen Hormones: Negative Surgical history: Right breast lumpectomy axillary node dissection Removal of vaginal septum Appendectomy Cholecystectomy Medical history: Negative Social history: Smoked: Negative Alcohol: Occasional Drugs: Negative Review of systems: HEENT: Negative Lungs: Negative Heart: Palpitations GI: Negative : Prior surgeries for bicornate uterus and vaginal septum Musculoskeletal: Leg pain Neurologic: Negative Hematologic: Negative ALLERGIES: Seasonal - Constitutional Comment: hot flashes Constitutional: Denies chills, Denies fever - EENT Eyes: denies blurred vision, denies pain Ears: deny: decreased hearing, tinnitus Ears, nose, mouth and throat: Denies headache, Denies sore throat - Breasts Breasts: bilateral: as per HPI - Cardiovascular Cardiovascular: Denies chest pain, Denies shortness of breath - Respiratory Respiratory: Denies cough, Denies 7 - Gastrointestinal Gastrointestinal: Denies abdominal pain, Denies diarrhea, Denies nausea, Denies vomiting - Genitourinary (Female) Genitourinary: Denies dysuria, Denies hematuria - Menstruation Comment: She has not had a period since she finished her chemotherapy - Musculoskeletal Musculoskeletal: Reports myalgias - Integumentary Integumentary: Denies pruritus, Denies rash - Neurological Neurological: Denies numbness, Denies weakness - Psychiatric Psychiatric: Denies anxiety, Denies depression - Endocrine Endocrine: Denies fatigue, Denies weight change - Hematologic/Lymphatic Comment: none - Allergic/Immunologic Allergic/Immunologic: Reports as per HPI Past Medical History Past Medical History: Cancer Additional Past Medical History / Comment(s): Right Breast Cancer 10/2018 History of Any Multi-Drug Resistant Organisms: None Reported Past Surgical History: Appendectomy, Breast Surgery, Cholecystectomy Additional Past Surgical History / Comment(s): Right Breast Lumpectomy 10/2018 Past Anesthesia/Blood Transfusion Reactions: No Reported Reaction Past Psychological History: No Psychological Hx Reported Smoking Status: Former smoker Past Alcohol Use History: Occasional Additional Past Alcohol Use History / Comment(s): quit smoking 5 yrs ago, 1 1/2- 2ppd on & off for 18 yrs. Past Drug Use History: None Reported - Past Family History Mother Additional Family Medical History / Comment(s): Maternal grandmother with breast cancer. Medications and Allergies Home Medications Medication Instructions Recorded Confirmed Type Melatonin 5 mg PO HS 09/11/18 07/30/19 History Vortioxetine Hydrobromide 20 mg PO HS 09/11/18 07/30/19 History [Trintellix] Cyclobenzaprine [Flexeril] 10 mg PO DAILY PRN 10/20/18 07/30/19 History ALPRAZolam [Xanax] 0.25 mg PO TID PRN 10/23/18 07/30/19 History Elderberry Fruit and Flower [Black 1 each PO DAILY 11/19/18 07/30/19 History Elderberry 575 mg Cap] Desog-E.estradiol/E.estradiol 1 each PO HS 07/09/19 07/30/19 History [Azurette 28 Day Tablet] Allergies Allergy/AdvReac Type Severity Reaction Status Date / Time Quinolones Allergy Rash/Hives Verified 07/30/19 14:22 Surgical - Exam Vital Signs Temp Pulse Resp BP Pulse Ox 98.4 F 81 16 123/81 97 07/30/19 14:29 07/30/19 14:29 07/30/19 14:29 07/30/19 14:29 07/30/19 14:29 BMI 37.6 - General well developed, well nourished, no distress - Eyes normal ocular movement - ENT no hearing loss, no congestion - Neck no masses, trachea midline - Respiratory normal respiratory effort, clear to auscultation - Cardiovascular Rhythm: regular Heart Sounds: normal: S1, S2 - Abdomen Abdomen: soft, non tender, no guarding, no rigid, no rebound - Integumentary Mild erythema over the right breast, patient states it has improved since she started Keflex - Neurologic no disoriented, no combative - Musculoskeletal normal gait, normal posture - Psychiatric oriented to time, oriented to person, oriented to place, speech is normal, memory intact Right breast: Mild erythema over the breast, the breast is slightly warmer than the left breast, the patient states that since she has been on Keflex therapy erythema has decreased in tenderness has decreased, there is no discrete mass or evident fluid collection on exam for aspiration or incision and drainage Right axilla: No axillary adenopathy of concern. [place] [id number] reviewed/WBC 2.5 Ultrasound from [place] reviewed patient noted to have nonspecific edema and interfascial fluid without a drainable fluid collection patient was also noted to have a smoothly marginated tubular hypoechoic structure just lateral to the nipple mention is made as to whether this should be sampled. Assessment and Plan Assessment: Impression: 1. Patient status post right breast lumpectomy and axillary node dissection in October 2018 2. Recent erythema of the right breast resolving on Keflex 3. Low white blood cell count 2.4 4. Patient recommended to start tamoxifen she has not started this yet 5. Bilateral mammogram in the near future awaiting resolution of right breast erythema 6. Skin thickening in the right breast believed to be related to inflammation/radiation changes 7. Ultrasound right breast no drainable fluid collection Plan: 1. Continue Keflex as patient has been improving on the Keflex 2. Repeat CBC next week 3. If patient develops any fever or chills were concerned she will call immediately 4. ultrasound performed in [place] on Friday revelaed no drainable fluid collection 5. Bilateral mammogram when the changes in the right breast have resolved 6. follow up next week Cc: Dr. ibrahim
== END | disposition home or self-care (01) ==
LOC: WWCWWP 14:15
PROVIDERS: ATTEND Surgery
DX: Z53.9 Procedure and treatment not carried out, unspecified reason (principal)

== ENCOUNTER → 2019-08-10 | Outpatient (CLI) | payer OTHER ==
--- NOTE | 2019-08-10 11:26 | USB ---
Reason for exam: clinical finding. Indicated problem(s): lump or thickening in the right breast. Physical Findings: Nurse Summary: right breast red/inflammed/warm (nurse dw). US Breast RT Right complete breast ultrasound includes all four quadrants, the retroareolar region and axilla. Finding demonstrates a 3.3 x 1.6 x 4.2cm irregular, cystic, complex collection at 6 o'clock, a 0.8 x 0.4 x 0.9cm oval, solid lesion at 10 o'clock, prior biopsy and a 1.9 x 0.5cm oval, solid lesion at 9 o'clock. These results were verbally communicated with the patient and result sheet given to the patient on 08/10/19. ASSESSMENT: Probably benign, BI-RAD 3 RECOMMENDATION: Follow-up diagnostic mammogram and ultrasound of the right breast in 6 months. Manage patient on a clinical basis.
[2019-08-10 12:23] LABS: HCT 38.1 % (34.0-46.0); HGB 13.6 gm/dL (11.4-16.0); MCH 31.3 pg (25.0-35.0); MCHC 35.6 g/dL (31.0-37.0); MCV 88.1 fL (80.0-100.0); Mean Platelet Volume 6.5; Platelet Count 251 k/uL (150-450); RBC 4.33 m/uL (3.80-5.40); RDW 13.1 % (11.5-15.5); WBC 3.2 k/uL (3.8-10.6)
== END | disposition home or self-care (01) ==
LOC: RADUSWWP 10:06
PROVIDERS: ATTEND Surgery
DX: Z08 Encounter for follow-up examination after completed treatment for malignant neoplasm (principal); Z85.3 Personal history of malignant neoplasm of breast; N64.9 Disorder of breast, unspecified
CPT/HCPCS: 36415; 85027

== ENCOUNTER 2019-08-13 06:56 | Day surgery (SDC) | payer OTHER ==
[2019-08-11 11:09] VITALS: BMI 36.4
--- NOTE | 2019-08-12 19:36 | P.GSHP ---
History of Present Illness H&P Date: 08/13/19 CHIEF COMPLAINT: Breast cancer. HISTORY OF PRESENT ILLNESS: The patient is a 38-year-old female diagnosed with invasive breast cancer. She had a Mediport placement. She presents for Port-A-Cath removal upon completion of her chemotherapy. PAST MEDICAL HISTORY: Breast cancer. PAST SURGICAL HISTORY: See list. CURRENT MEDICATIONS: See list. ALLERGIES: See list. SOCIAL HISTORY: See list. FAMILY HISTORY: See list. REVIEW OF ORGAN SYSTEMS: CONSTITUTIONAL: Denies any fever or chills. HEENT: Denies any trouble with vision, hearing or nosebleeds. No difficulty swallowing. BREASTS: Please see above. PHYSICAL EXAMINATION: Vital signs: Stable GENERAL: Well developed female and in no acute distress. Pleasant. HEENT: No sclera icterus. Extraocular movements grossly intact. Moist buccal mucosa. Head is atraumatic, normocephalic. Hears conversational speech. No nasal drainage. NECK: Supple without lymphadenopathy. No JV distention. CHEST: Non-labored respirations and equal bilateral excursions. CARDIOVASCULAR: Regular rate and rhythm. Palpable 2+ radial pulses. ABDOMEN: Nontender. MUSCULOSKELETAL: No clubbing, cyanosis or edema. NEUROLOGIC: No focal or lateralizing signs. PSYCH: Appropriate affect. Alert and oriented to person, place and time. ASSESSMENT: 1. Breast cancer. 2. Need for chemotherapeutic access. PLAN: 1. Agree with Port-A-Cath removal per patient's request. Past Medical History Past Medical History: Cancer Additional Past Medical History / Comment(s): Right Breast Cancer 10/2018, last chemo 03/2019 History of Any Multi-Drug Resistant Organisms: None Reported Past Surgical History: Appendectomy, Breast Surgery, Cholecystectomy Additional Past Surgical History / Comment(s): port a cath, Right Breast Lumpectomy 10/2018 Past Anesthesia/Blood Transfusion Reactions: No Reported Reaction Past Psychological History: No Psychological Hx Reported Smoking Status: Former smoker Past Alcohol Use History: Occasional Additional Past Alcohol Use History / Comment(s): quit smoking 2012, 11/11-2ppd on & off for 18 yrs. Past Drug Use History: None Reported - Past Family History Mother Additional Family Medical History / Comment(s): Maternal grandmother with breast cancer. Medications and Allergies Home Medications Medication Instructions Recorded Confirmed Type Melatonin 5 mg PO HS 09/11/18 08/11/19 History Vortioxetine Hydrobromide 20 mg PO HS 09/11/18 08/11/19 History [Trintellix] Cyclobenzaprine [Flexeril] 10 mg PO DAILY PRN 10/20/18 08/11/19 History ALPRAZolam [Xanax] 0.25 mg PO TID PRN 10/23/18 08/11/19 History Elderberry Fruit and Flower [Black 1 each PO DAILY 11/19/18 08/11/19 History Elderberry 575 mg Cap] Acetaminophen-Codeine 300-30mg 1 tab PO BID 08/11/19 08/11/19 History [Tylenol w/codeine #3] Norethindrone 1 tab PO DAILY 08/11/19 History Ranitidine HCl [Zantac] 150 mg PO BID 08/11/19 08/11/19 History Allergies Allergy/AdvReac Type Severity Reaction Status Date / Time Quinolones Allergy Rash/Hives Verified 08/11/19 10:59
[~2019-08-13 06:56] MED LIST changes: +DEXAMETHASONE SOD PHOSPHATE 10 MG/ML 1 ML VIAL IV ONE; +HYDROmorphone 0.5 MG/0.5 ML SYRINGE IVP PRN; -LIDOCAINE 1% 20 ML VIAL (10MG/ML) FOR IV START INTRADERMA PRN; +ONDANSETRON 4 MG/2 ML VIAL IVP ONE; -Pre Op ABX Message 1 EACH MISC MISCELLANE ONE; +SCOPOLAMINE 1.5MG/72HR PATCH TRANSDERM ONE; -ceFAZolin IN SWFI 2 GM/20 ML SYRINGE IVP ONE; -fentaNYL (PF) 50 MCG/ML 2 ML AMP IV PRN; -fentaNYL (PF) 50 MCG/ML 2 ML AMP IVP PRN
[2019-08-13 07:18] VITALS: TEMP 97.8
[2019-08-13] MEDS ORDERED: FAMOTIDINE 20 MG/2 ML VIAL IVP ONE (07:52)
[2019-08-13] MEDS ORDERED: PROPOFOL 10 MG/ML 20 ML VIAL IV ONE (08:20)
[2019-08-13] MEDS ORDERED: MIDAZOLAM 2 MG/2 ML VIAL ONE (08:20)
[2019-08-13] MEDS ORDERED: GLYCOPYRROLATE 0.2 MG/ML 2 ML VIAL ONE (08:20)
[2019-08-13] MEDS ORDERED: fentaNYL (PF) 50 MCG/ML 2 ML AMP ONE (08:20)
[2019-08-13] MEDS ORDERED: KETAMINE 10 MG/ML 20 ML VIAL ONE (08:20)
[2019-08-13] MEDS ORDERED: LIDOCAINE 1%-EPI 1:100,000 20 ML VIAL SQ ONE (08:43)
--- NOTE | 2019-08-13 09:03 | P.OP ---
Date of Procedure: 08/13/19 Description of Procedure: SURGEON: YANCY BAIRES MD AREA DEVELOPMENT CONSULTANT: None. PREOPERATIVE DIAGNOSIS: 1. Breast cancer, right 2. Chemotherapeutic access. 3. Morbid obesity due to excess calories, BMI 36.9 4. Generalized anxiety disorder 5. Gastroesophageal reflux disease POSTOPERATIVE DIAGNOSIS: 1. Breast cancer, right 2. Chemotherapeutic access. 3. Morbid obesity due to excess calories, BMI 36.9 4. Generalized anxiety disorder 5. Gastroesophageal reflux disease OPERATION: Removal of right internal jugular vein Port-A-Cath. ANESTHESIA: MAC with 30 mL local ESTIMATED BLOOD LOSS: 1 mL SPECIMENS REMOVED: Port-A-Cath COMPLICATIONS: None. INDICATIONS: The patient is a 38-year-old female who completed chemotherapy for lymphoma. She now has elected for removal. Benefits and risks were described. Informed consent was obtained. DESCRIPTION OF PROCEDURE: Patient was brought to the operating room, laid in supine position. After IV sedation the chest wall on the left side was prepped and draped in standard sterile fashion. Prior to incision, a timeout protocol was confirmed with surgical team regarding the patient's name including procedures to be performed. As this was a clean case, no further antibiotics were required. Additionally, early ambulation was encouraged for DVT prophylaxis. Attention was brought to the area of the port site, whereby a total of 30 mL of local was infiltrated into the skin for a field block. A #15 blade was used to incise along the previous cicatrix. Electro- Bovie cautery was used to control for hemostasis. Adhesions were lysed around the Mediport. The port was extracted without sequelae. Pressure for 2 minutes was placed along the internal jugular vein. Hemostasis was checked along the pocket of the Port-A-Cath site. The wound was closed in layers using 3-0 Vicryl for the deep subcutaneous tissues followed by 4-0 Monocryl in a running subcuticular fashion. Dermabond was applied to the skin. Once dried a 4 x 4 Optifoam was applied. At the end of the procedure needle, sponge and instrument counts were verified correct by the surgical lead. The patient had tolerated the procedure well and was taken to postanesthesia care in stable condition. FINDINGS: 1. Unremarkable Port-a-cath extraction. Plan - Discharge Summary Discharge Rx Participant: No New Discharge Prescriptions: No Action Vortioxetine Hydrobromide [Trintellix] 20 mg PO HS Melatonin 5 mg PO HS Cyclobenzaprine [Flexeril] 10 mg PO DAILY PRN PRN Reason: Pain ALPRAZolam [Xanax] 0.25 mg PO TID PRN PRN Reason: Anxiety Elderberry Fruit and Flower [Black Elderberry 575 mg Cap] 1 each PO DAILY Norethindrone 1 tab PO DAILY Ranitidine HCl [Zantac] 150 mg PO BID Acetaminophen-Codeine 300-30mg [Tylenol w/codeine #3] 1 tab PO BID Discharge Medication List Melatonin 5 mg PO HS 09/11/18 [History] Vortioxetine Hydrobromide [Trintellix] 20 mg PO HS 09/11/18 [History] Cyclobenzaprine [Flexeril] 10 mg PO DAILY PRN 10/20/18 [History] ALPRAZolam [Xanax] 0.25 mg PO TID PRN 10/23/18 [History] Elderberry Fruit and Flower [Black Elderberry 575 mg Cap] 1 each PO DAILY 11/19/18 [History] Acetaminophen-Codeine 300-30mg [Tylenol w/codeine #3] 1 tab PO BID 08/11/19 [History] Norethindrone 1 tab PO DAILY 08/11/19 [History] Ranitidine HCl [Zantac] 150 mg PO BID 08/11/19 [History] Follow up Appointment(s)/Referral(s): Yancy Baires MD [STAFF PHYSICIAN] - As Needed Patient Instructions/Handouts: *Surgery [facility] - (Anesthesia) Discharge Instructions Outpatient Surgery Activity/Diet/Wound Care/Special Instructions: May shower. Remove dressing 08/17/2019. Please sleep on 2-3 pillows. Expect bruising which resolves in 2 weeks. Discharge Disposition: HOME SELF-CARE
[2019-08-13 09:21] VITALS: BP 132/84; PULSE 78; RESP 18
== END 2019-08-13 09:51 | disposition home or self-care (01) ==
LOC: OR 06:56
PROVIDERS: ATTEND Surgery Plastic and Reconstructive Surgery
DX: Z45.2 Encounter for adjustment and management of vascular access device (principal); C50.911 Malignant neoplasm of unspecified site of right female breast; F41.1 Generalized anxiety disorder; K21.9 Gastro-esophageal reflux disease without esophagitis; F34.1 Dysthymic disorder; E66.01 Morbid (severe) obesity due to excess calories; Z92.21 Personal history of antineoplastic chemotherapy; Z90.49 Acquired absence of other specified parts of digestive tract; Z87.891 Personal history of nicotine dependence; Z79.891 Long term (current) use of opiate analgesic; Z79.899 Other long term (current) drug therapy; Z88.1 Allergy status to other antibiotic agents; Z68.36 Body mass index [BMI] 36.0-36.9, adult; Z80.3 Family history of malignant neoplasm of breast
CPT/HCPCS: 81025; 36590; J2250; J1100; J0690; J2405; J3010; J2704

== ENCOUNTER → 2019-08-19 | Outpatient (CLI) | payer OTHER ==
[2019-08-19 09:41] VITALS: BP 128/90; PULSE 79; RESP 16; TEMP 98.7; BMI 37.0
--- NOTE | 2019-08-19 10:10 | P.PN ---
Subjective Progress Note Date: 08/19/19 Principal diagnosis: history of right breast cancer, abnormal ultrasound of the breast Michaela is a 38 year old white female with a diagnosis of right breast cancer diagnosed in September of 2018. She had a lumpectomy and axillary node dissection secondary to positive axillary nodes. Postoperatively she underwent chemotherapy for 8 treatments. She finished that in January 2019. She had radiation therpy and finished that in April of 2019. She is going to start tamoxifen. she has still not started this. She is doing this through Dr. Low. The patient states that her right breast had been swollen and painful for approximately 2 weeks prior to her last visit. She was treated with a course of Keflex and flagyl with resolution. The patient has not had any fever or chills. The patient had an ultrasound done Friday in , this had nonspecific edema in interfascial fluid without a drainable fluid collection. There was possible mild diffuse skin thickening as well.. The patient had a CBC on and her white blood cell count at that time was 2.5. The patient had a repeat right breast ultrasound performed on . This revealed a 3.3 x 1.6 cm cystic complex collection at 6:00, a 0.8 x 0.9 cm solid lesion at 10:00 prior biopsy and 1.9 x 0.5 cm solid lesion at 9:00 this is felt to be probably benign BIRADS 3 and a follow-up ultrasound in 6 months is recommended. She will have bilateral mammograms next month. Michaela was last seen here 07/30/2019. The patient's tumor was a T1c, and 0, M0 he had a positive HER-2 negative tumor. A PET scan was performed in October 2018 which did not show any evidence of metastatic disease. The patient had bilateral breast MRIs in February 2019 which revealed a question of some granulation tissue in the right axilla posterior repeat MRI at 1 year was recommended. The patient's past mammogram was in fall. The patient states that the changes in her breast occurred after she started physical therapy for her right arm. This was approximately 3 weeks prior to her last visit. Michaela saw last week and a repeat bilateral mammogram will be done next month. She also has a PET scan scheduled for next month on the . She had her Mediport removed last Friday. Repeat white blood cell count is 3.2 on . 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 Musculoskeletal: Leg pain Neurologic: Negative Hematologic: Negative ALLERGIES: Seasonal - Constitutional Comment: hot flashes Constitutional: Denies chills, Denies fever - EENT Eyes: denies blurred vision, denies pain Ears: deny: decreased hearing, tinnitus Ears, nose, mouth and throat: Denies headache, Denies sore throat - Breasts Breasts: bilateral: as per HPI - Cardiovascular Cardiovascular: Denies chest pain, Denies shortness of breath - Respiratory Respiratory: Denies cough, Denies 7 - Gastrointestinal Gastrointestinal: Denies abdominal pain, Denies diarrhea, Denies nausea, Denies vomiting - Genitourinary (Female) Genitourinary: Denies dysuria, Denies hematuria - Menstruation Comment: She has not had a period since she finished her chemotherapy - Musculoskeletal Musculoskeletal: Reports myalgias - Integumentary Integumentary: Denies pruritus, Denies rash - Neurological Neurological: Denies numbness, Denies weakness - Psychiatric Psychiatric: Denies anxiety, Denies depression - Endocrine Endocrine: Denies fatigue, Denies weight change - Hematologic/Lymphatic Comment: none - Allergic/Immunologic Allergic/Immunologic: Reports as per HPI Past Medical History Past Medical History: Cancer Additional Past Medical History / Comment(s): Right Breast Cancer 10/2018 History of Any Multi-Drug Resistant Organisms: None Reported Past Surgical History: Appendectomy, Breast Surgery, Cholecystectomy Additional Past Surgical History / Comment(s): Right Breast Lumpectomy 10/2018 Past Anesthesia/Blood Transfusion Reactions: No Reported Reaction Past Psychological History: No Psychological Hx Reported Smoking Status: Former smoker Past Alcohol Use History: Occasional Additional Past Alcohol Use History / Comment(s): quit smoking 5 yrs ago, 1 1/2- 2ppd on & off for 18 yrs. Past Drug Use History: None Reported Objective - Vital Signs Vital signs: Vital Signs Temp 98.7 F 08/19/19 09:36 Pulse 79 08/19/19 09:36 Resp 16 08/19/19 09:36 BP 128/90 08/19/19 09:36 Pulse Ox 98 08/19/19 09:36 Intake & Output 08/18/19 08/19/19 08/19/19 18:59 06:59 18:59 Weight 113.852 kg - Exam BMI 37.1 - Constitutional General appearance: Present: obese - EENT Eyes: Present: EOMI ENT: Present: hearing grossly normal - Neck Neck: Present: normal ROM - Respiratory Respiratory: bilateral: CTA - Cardiovascular Rhythm: regular Heart sounds: normal: S1, S2 - Gastrointestinal General gastrointestinal: Present: soft - Musculoskeletal Musculoskeletal: Present: gait normal - Psychiatric Psychiatric: Present: A&O x's 3, appropriate affect, intact judgment & insight - Additional findings Additional findings: Breast examination: Right breast: Decreased erythema over the breast, the breast remains slightly warmer than the left breast. The patient states that the area has improved since she has had a course of antibiotics, no discrete mass evident fluid collection, the incision is clean and dry, some thickening of the skin believed to be related to radiation changes Right axilla: No adenopathy of concern Left breast: Multi-positional exam no dominant masses or nodules of concern, fibrocystic changes Left axilla: No adenopathy of concern Assessment and Plan Assessment: CBC from reviewed/white blood cell count 3.2 Ultrasound from same date reviewed Impression: 1. Patient status post right breast lumpectomy and axillary node dissection October 2018 2. Recent erythema of the right breast resolving on Keflex and Flagyl patient is no longer on antibiotics 3. White blood cell count increased from 2.4-3.2 continue to follow 4. Patient recommended to start tamoxifen she has not yet started this 5. Bilateral mammogram next month 6. Skin thickening in the right breast believed to be related to radiation changes 7. Ultrasound right breast no drainable fluid collection repeat ultrasound in 6 months 8. PET scan October 09 Plan: 1. Bilateral mammogram next month 2. PET scan next month 2. Tamoxifen as per medical oncology 4. Repeat CBC when I see her next month 5. Continue present therapy for breast no obvious infection at this time changes believed to be post radiation in nature Cc:
== END | disposition home or self-care (01) ==
LOC: WWCWWP 09:29
PROVIDERS: ATTEND Surgery
DX: Z53.9 Procedure and treatment not carried out, unspecified reason (principal)

== ENCOUNTER → 2019-10-06 | Outpatient (CLI) | payer OTHER ==
[2019-10-06 07:46] LABS: Basophils # (A) 0.1 k/uL (0-0.2); Basophils % (A) 2 %; Eosinophils # (A) 0.1 k/uL (0-0.7); Eosinophils % (A) 2 %; HCT 41.5 % (34.0-46.0); HGB 13.9 gm/dL (11.4-16.0); Lymphocytes # (A) 0.8 k/uL (1.0-4.8); Lymphocytes % (A) 24 %; MCH 31.1 pg (25.0-35.0); MCHC 33.6 g/dL (31.0-37.0); MCV 92.8 fL (80.0-100.0); Monocytes # (A) 0.2 k/uL (0-1.0); Monocytes % (A) 7 %; Neutrophils # (A) 1.9 k/uL (1.3-7.7); Neutrophils % (A) 62 %; Platelet Count 222 k/uL (150-450); RBC 4.47 m/uL (3.80-5.40); RDW 12.3 % (11.5-15.5); WBC 3.1 k/uL (3.8-10.6)
--- NOTE | 2019-10-06 08:45 | MM ---
Reason for exam: additional evaluation requested from prior study. History: Patient has history of breast cancer at age 37. Took hormonal contraceptives for 20 years. Taking antineoplastic for 1 year beginning at age 37. Physical Findings: Nurse did not find any significant physical abnormalities on exam. MG Diagnostic Mammo w CAD NAIF Bilateral CC and MLO view(s) were taken. The breast tissue is heterogeneously dense. This may lower the sensitivity of mammography. Finding: There is new skin thickening architectural distortion in the middle position of the right breast, presumed post treatment changes. Previous mammotome biopsy in the right breast. These results were verbally communicated with the patient and result sheet given to the patient on 10/06/19. ASSESSMENT: Probably benign, BI-RAD 3 RECOMMENDATION: Follow-up diagnostic mammogram of the right breast in 6 months.
== END | disposition home or self-care (01) ==
LOC: RADMAMWWP 06:52
PROVIDERS: ATTEND Surgery
DX: R92.8 Other abnormal and inconclusive findings on diagnostic imaging of breast (principal); D72.819 Decreased white blood cell count, unspecified
CPT/HCPCS: 36415; 77066; 85025

== ENCOUNTER → 2019-10-15 | Outpatient (CLI) | payer OTHER ==
[2019-10-15 08:43] VITALS: BP 130/81; PULSE 72; RESP 16; TEMP 98.5
--- NOTE | 2019-10-15 09:29 | P.PN ---
Subjective Progress Note Date: 10/15/19 Principal diagnosis: Surveillance stage IIA right breast cancer Michaela is a 38-year-old white female status post right breast lumpectomy and axillary node dissection for a T1cN 2M0 moderately differentiated infiltrating ductal carcinoma of the right breast. This was grade 2 with ER/AK positive and HER-2/aries negative status. 5of 7 lymph nodes were positive with extranodal extension. The patient had adjuvant chemotherapy followed by adjuvant radiation therapy. She completed her radiotherapy in April 2019. The patient at this time is doing well she has no complaints. She is presently taking tamoxifen. She is doing okay with this. Patient had a PET scan performed 05/29/2018 which did not show any evidence of metastatic disease. A recent PET scan was ordered but denied by insurance and therefore not performed. The patient had a bilateral mammogram performed on [id number]. This revealed some skin thickening in the middle portion of the right breast presumed posttreatment changes. Probable benign findings and follow-up right breast mammogram in 6 months time recommended. Nothing of concern noted in the left breast. She also had an ultrasound performed of the right breast on 08-10-19 and this revealed a 3.3 x 4.2 cm irregular cystic complex collection at 6:00 and a solid lesion at 10:00 prior biopsy and 1.9 cm solid lesion at 9:00 this was felt to be probably benign follow-up diagnostic mammogram and ultrasound of the right breast in 6 months. Patient had a CBC performed which revealed a white count of 3.1 and hemoglobin of 13.9. 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 Musculoskeletal: Negative Neurologic: Negative Hematologic: Negative ALLERGIES: Seasonal Objective - Vital Signs Vital signs: Vital Signs Temp 98.5 F 10/15/19 08:40 Pulse 72 10/15/19 08:40 Resp 16 10/15/19 08:40 BP 130/81 10/15/19 08:40 Pulse Ox 97 10/15/19 08:40 Intake & Output 10/14/19 10/15/19 10/15/19 18:59 06:59 18:59 Weight 115.212 kg - Exam BMI 37.5 - Constitutional General appearance: Present: obese - EENT Eyes: Present: EOMI ENT: Present: hearing grossly normal - Neck Neck: Present: normal ROM - Respiratory Respiratory: bilateral: CTA - Cardiovascular Rhythm: regular Heart sounds: normal: S1, S2 - Gastrointestinal Gastrointestinal Comment(s): no guarding or rebound no organomegaly General gastrointestinal: Present: soft - Integumentary Integumentary Comment(s): Erythema of the right breast related to radiation no evidence of infection at this time some thickening of the skin again believed to be related to radiation - Musculoskeletal Musculoskeletal: Present: gait normal - Psychiatric Psychiatric: Present: A&O x's 3, appropriate affect, intact judgment & insight - Additional findings Additional findings: Breasts examination: Right breast: Slightly smaller than the left breast related to treatment changes patient has some thickening of the skin and erythema related to radiation no evidence of any infection multiple positional exam no dominant masses or nodules of concern well-healed scar from prior lumpectomy Right axilla: No adenopathy of concern Left breast: Multiple positional exam no dominant masses or nodules of concern fibrocystic changes Left axilla: No adenopathy of concern Bra 42DDD ptosis right 2, ptosis left 3 Assessment and Plan Assessment: Impression: 1. Patient status post right breast lumpectomy and axillary node dissection for a stage II a right breast cancer 2. Patient status post radiation therapy of right breast 3. Patient status post chemotherapy weight breast presently on tamoxifen 4. Patient without any symptoms related to the tamoxifen doing well at this time 5. Insurance company did not allow patient to get PET scan at this time metastatic workup will be deferred to Dr. Staples discretion 6. No evidence of any recurrent cancer at this time 7. Mammogram in September performed and repeat right breast mammogram in 6 months time recommended Plan: 1. Continue tamoxifen 2. Repeat right breast mammogram in 6 months time with physician exam at that time 3. Patient to call sooner if anything of concern Cc: Dr. Celis encounter 25 minutes, > 50% planning and discussion
== END ==
LOC: WWCWWP 08:29
PROVIDERS: ATTEND Surgery
DX: Z53.9 Procedure and treatment not carried out, unspecified reason (principal)

== ENCOUNTER → 2020-04-07 | Outpatient (CLI) | payer OTHER ==
--- NOTE | 2020-04-11 09:55 | MM ---
Reason for exam: screening (asymptomatic). Last mammogram was performed 6 months ago. History: Patient has history of breast cancer at age 37. Lumpectomy of the right breast, 2018. Chemotherapy, 2018. Radiation therapy of the right breast, 2018. Took hormonal contraceptives for 20 years. Taking antineoplastic for 1 year beginning at age 37. Physical Findings: A clinical breast exam by your physician is recommended on an annual basis and results should be correlated with mammographic findings. MG Diagnostic Mammo RT w CAD CC and MLO view(s) were taken of the right breast. Prior study comparison: October 06, 2019, bilateral MG diagnostic mammo w CAD NAIF. August 10, 2019, right breast US breast RT. February 22, 2019, bilateral MR breast bilat wo/w con. October 20, 2018, mammogram. July 22, 2018, mammogram. March 19, 2017, mammogram. The breast tissue is heterogeneously dense. This may lower the sensitivity of mammography. Redemonstrated post surgical and post therapy changes and Biozorb device. Continued follow up recommended to assess the post therapy changes. No significant new findings when compared with previous films. These results were verbally communicated with the patient and result sheet given to the patient on 04/07/20. ASSESSMENT: Probably benign, BI-RAD 3 RECOMMENDATION: Follow-up diagnostic mammogram of both breasts in 6 months.
== END | disposition home or self-care (01) ==
LOC: RADMAMWWP 12:56
PROVIDERS: ATTEND Surgery
DX: Z08 Encounter for follow-up examination after completed treatment for malignant neoplasm (principal); Z85.3 Personal history of malignant neoplasm of breast
CPT/HCPCS: 77065

== ENCOUNTER → 2020-04-13 | Outpatient (CLI) | payer OTHER ==
[2020-04-13 09:44] VITALS: BP 130/79; PULSE 75; RESP 18; TEMP 98.1
--- NOTE | 2020-04-13 09:57 | P.PN ---
Subjective Progress Note Date: 04/13/20 Principal diagnosis: Stage IIA right breast cancer Michaela is a 39-year-old white female status post right breast lumpectomy and axillary node dissection for a T1cN 2M0 moderately differentiated infiltrating ductal carcinoma of the right breast. This was grade 2 with ER/VA positive and HER-2/aries negative status. 5of 7 lymph nodes were positive with extranodal extension. This was done in October 2018. The patient had adjuvant chemotherapy followed by adjuvant radiation therapy. She completed her radiotherapy in April 2019. The patient at this time is doing well she has no complaints. She is presently taking tamoxifen. She is doing okay with this. Patient had a PET scan performed 05/29/2018 which did not show any evidence of metastatic disease. The patient had a bilateral mammogram performed on [id number]. This revealed some skin thickening in the middle portion of the right breast presumed posttreatment changes. Probable benign findings and follow-up right breast mammogram in 6 months time recommended. Nothing of concern noted in the left breast. She also had an ultrasound performed of the right breast on 08-10-19 and this revealed a 3.3 x 4.2 cm irregular cystic complex collection at 6:00 and a solid lesion at 10:00 prior biopsy and 1.9 cm solid lesion at 9:00 this was felt to be probably benign follow-up diagnostic mammogram and ultrasound of the right breast in 6 months. She had a right breast diagnostic mammogram performed on . This revealed breast tissue is heterogeneously dense. We demonstrated postsurgical and post- therapeutic changes in BioSorb device. Continue follow-up recommended. The patient did not have a right breast ultrasound at that time. 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 Musculoskeletal: Negative Neurologic: Negative Hematologic: Negative ALLERGIES: Seasonal Objective - Vital Signs Vital signs: Vital Signs Temp 98.1 F 04/13/20 09:41 Pulse 75 04/13/20 09:41 Resp 18 04/13/20 09:41 BP 130/79 04/13/20 09:41 Pulse Ox 98 04/13/20 09:41 Intake & Output 04/12/20 04/13/20 04/13/20 18:59 06:59 18:59 Weight 115.666 kg - Exam BMI 38.8 - Constitutional General appearance: Present: cooperative, obese - EENT Eyes: Present: EOMI ENT: Present: hearing grossly normal - Neck Neck: Present: normal ROM - Respiratory Respiratory: bilateral: CTA - Cardiovascular Rhythm: regular Heart sounds: normal: S1, S2 - Gastrointestinal General gastrointestinal: Present: normal bowel sounds, soft - Integumentary Integumentary: Present: normal turgor - Musculoskeletal Musculoskeletal: Present: gait normal - Psychiatric Psychiatric: Present: A&O x's 3, appropriate affect, intact judgment & insight - Additional findings Additional findings: breast exam: BRA 42DD inspection: no nipple inversion, ptosis grade 2 Palpation: Right breast well-healed scar from prior lumpectomy, skin thickening related to radiation changes, multiple positional exam no dominant masses or nodules of concern right axilla: No adenopathy of concern Left breast: Multiple positional exam no dominant masses or nodules of concern, fibrocystic changes Left axilla: No adenopathy of concern Assessment and Plan Assessment: Impression: 1. Patient 39-year-old white female status post right breast lumpectomy sentinel node biopsy for stage IIa right breast cancer, this was performed in October 2018, she also had radiation and adjuvant chemotherapy. She is presently on tamoxifen 2. No evidence of any recurrent cancer 3. Recent mammogram from [id number] benign BIRADS 3 Plan: 1. Recommend repeat ultrasound of the right breast 2. Continue to follow with medical oncology 3. Follow-up here in 6 months time depending on ultrasound results CC: Dr. Hooper encounter 25 minutes, > 50% of time in planning and counselling Time with Patient: Less than 30
--- NOTE | 2020-04-13 12:02 | USB ---
Reason for exam: clinical finding. History: Patient has history of breast cancer at age 37. Lumpectomy of the right breast, 2018. Chemotherapy, 2018. Radiation therapy of the right breast, 2018. Took hormonal contraceptives for 20 years. Taking antineoplastic for 1 year beginning at age 37. Indicated problem(s): lump or thickening in the right breast. Physical Findings: Breast exam performed by Dr. Copeland. US Breast RT Technologist: Darlin Mark Right complete breast ultrasound includes all four quadrants, the retroareolar region and axilla. Finding demonstrates a 2.5 x 2.7 x 2.4cm mixed lesion at 6 o'clock at site of biozorb, evolving post biopsy change and a 1.4 x 1.6 x 0.4cm oval, hypoechoic, nonvascular, oval, smooth margin lesion at 9 o'clock, prior 1.9 x 0.5 x 0.5cm. These results were verbally communicated with the patient and result sheet given to the patient on 04/13/20. ASSESSMENT: Probably benign, BI-RAD 3 RECOMMENDATION: Breast MRI of both breasts. Patient is due for annual follow up recommended MRI. Follow-up diagnostic mammogram of both breasts in 6 months. Ultrasound of the right breast in 6 months.
== END | disposition home or self-care (01) ==
LOC: WWCWWP 09:36
PROVIDERS: ATTEND Surgery
DX: Z08 Encounter for follow-up examination after completed treatment for malignant neoplasm (principal); Z85.3 Personal history of malignant neoplasm of breast

== ENCOUNTER → 2020-07-14 | Outpatient (CLI) | payer OTHER | END | disposition home or self-care (01) | LOC: RADMRIMAIN 09:03 | PROVIDERS: ATTEND Surgery | DX: Z53.9 Procedure and treatment not carried out, unspecified reason (principal) ==

== ENCOUNTER → 2020-09-15 | Outpatient (CLI) | payer OTHER ==
--- NOTE | 2020-09-18 09:17 | MM ---
Reason for exam: follow-up at short interval from prior study. Last mammogram was performed 5 months ago. History: Patient is postmenopausal and has history of breast cancer at age 37. Lumpectomy of the right breast, 2018. Chemotherapy, 2018. Radiation therapy of the right breast, 2018. Took hormonal contraceptives for 20 years. Taking antineoplastic for 1 year beginning at age 37. Physical Findings: Nurse did not find any significant physical abnormalities on exam. MG Diagnostic Mammo w CAD NAIF Bilateral CC and MLO view(s) were taken. Prior study comparison: April 07, 2020, right breast MG diagnostic mammo RT w CAD. October 06, 2019, bilateral MG diagnostic mammo w CAD NAIF. There are scattered fibroglandular densities. There is chronic nodularity in the left breast. Post surgical changes in the right breast. No significant new findings when compared with previous films. These results were verbally communicated with the patient and result sheet given to the patient on 09/15/20. ASSESSMENT: Benign, BI-RAD 2 RECOMMENDATION: Follow-up diagnostic mammogram of both breasts in 1 year.
--- NOTE | 2020-09-18 09:20 | USB ---
Reason for exam: additional evaluation requested from prior study. History: Patient is postmenopausal and has history of breast cancer at age 37. Lumpectomy of the right breast, 2018. Chemotherapy, 2018. Radiation therapy of the right breast, 2018. Took hormonal contraceptives for 20 years. Taking antineoplastic for 1 year beginning at age 37. US Breast RT Right complete breast ultrasound includes all four quadrants, the retroareolar region and axilla. Finding demonstrates a 2.1 x 2.3 x 3.6cm irregular, mixed lesion at 6 o'clock, a 1.3 x 1.6 x 0.4cm oval, hypoechoic lesion at 9 o'clock and duct ectasia at the posterior nipple. These results were verbally communicated with the patient and result sheet given to the patient on 09/15/20. ASSESSMENT: Benign, BI-RAD 2 RECOMMENDATION: Follow-up diagnostic mammogram of both breasts in 1 year.
== END | disposition home or self-care (01) ==
LOC: RADMAMWWP 12:43
PROVIDERS: ATTEND Surgery
DX: R92.8 Other abnormal and inconclusive findings on diagnostic imaging of breast (principal); Z85.3 Personal history of malignant neoplasm of breast
CPT/HCPCS: 77066

== ENCOUNTER → 2020-09-29 | Outpatient (CLI) | payer OTHER ==
[2020-09-29 15:13] VITALS: BP 120/86; PULSE 80; RESP 18; TEMP 98.8
--- NOTE | 2020-09-29 15:25 | P.PN ---
Subjective Progress Note Date: 09/29/20 Principal diagnosis: stage IIA right breast cancer Stage IIA right breast cancer Michaela is a 39-year-old white female status post right breast lumpectomy and axillary node dissection for a [id number]+HEr2-G2 moderately differentiated infiltrating ductal carcinoma of the right breast. 5of 7 lymph nodes were positive with extranodal extension. This was done in October 2018. The patient had adjuvant chemotherapy followed by adjuvant radiation therapy. She completed her radiotherapy in [place] in April 2019. The patient at this time is doing well she has no complaints. She is presently taking tamoxifen. She is doing okay with this. Patient had a PET scan performed 05/29/2018 which did not show any evidence of metastatic disease. She had a bilateral mammogram on this was felt to be benign BIRADS 2 she also had an ultrasound of the right breast which revealed a 2.1 x 3.6 cm irregular mixed lesion at 6:00 and a 1.6 x 1.3 cm lesion at 9:00. This is also felt to be benign BIRADS 2 and follow-up mammogram of both breasts in 1 year is recommended. The patient had a breast MRI performed in August 2020 in [facility] and those results are going to be provided to us. Patient denies any lumps masses or nodules in her breast. She is not complainin g of any nipple discharge or skin changes. It is nothing that she is worried about at this time. She is not complaining of any pain in her breast. MRI of the breast was performed on the impression is as follows: 1. Stable postoperative changes in the right breast with no area suspicious signal in the left breast or right breast 2. Enhancing granulation tissue benign in the right axillary region similar to prior BIRADS 2 benign findings 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 Musculoskeletal: Negative Neurologic: Negative Hematologic: Negative ALLERGIES: Seasonal Objective - Exam BMI 36.6 - Constitutional General appearance: Present: obese - EENT Eyes: Present: EOMI ENT: Present: hearing grossly normal - Neck Neck: Present: normal ROM - Respiratory Respiratory: bilateral: CTA - Cardiovascular Rhythm: regular Heart sounds: normal: S1, S2 - Gastrointestinal General gastrointestinal: Present: normal bowel sounds, soft - Integumentary Integumentary: Present: normal turgor - Musculoskeletal Musculoskeletal: Present: gait normal - Psychiatric Psychiatric: Present: A&O x's 3, appropriate affect - Additional findings Additional findings: breast exam: BRA 42DD inspection: Bilateral grade 2/3 ptosis Palpation: Right breast: Postop changes, multiple positional exam no dominant masses or nodules of concern, fullness in the 6 o'clock position related to scar tissue Right axilla: No adenopathy of concern Left breast: Multiple positional exam no dominant masses or nodules of concern fibrocystic changes Left axilla: No adenopathy of concern Assessment and Plan Assessment: Impression: 1. Patient status post right breast lumpectomy/radiation therapy/chemotherapy for a stage IIA right breast invasive ductal carcinoma in 2018 no evidence of recurrent cancer 2. Patient presently taking tamoxifen following with Dr. Low Plan: 1. Bilateral mammogram in 1 year with physician exam at that time CC: Dr. Hooper encounter 15 minutes, > 50% of time in planning and counselling
== END | disposition home or self-care (01) ==
LOC: WWCWWP 14:59
PROVIDERS: ATTEND Surgery
DX: Z53.9 Procedure and treatment not carried out, unspecified reason (principal)

== ENCOUNTER → 2021-11-23 | Outpatient (CLI) | payer OTHER ==
[2021-11-23 10:38] VITALS: BP 123/85; PULSE 89; RESP 16; TEMP 97.9
--- NOTE | 2021-11-23 10:49 | P.PN ---
Subjective Progress Note Date: 11/23/21 Principal diagnosis: stage IIA right breast cancer stage IIA right breast cancer Michaela is a 40-year-old white female status post right breast lumpectomy and axillary node dissection for a [id number]+HEr2-G2 moderately differentiated infiltrating ductal carcinoma of the right breast. 5of 7 lymph nodes were positive with extranodal extension. This was done in October 2018. The patient had adjuvant chemotherapy followed by adjuvant radiation therapy. She completed her radiotherapy in [place] in April 2019. The patient at this time is doing well she has no complaints. She is presently taking tamoxifen. She is doing okay with this. Patient had a PET scan performed 05/29/2018 which did not show any evidence of metastatic disease. She had a bilateral mammogram on this was felt to be benign BIRADS 2 she also had an ultrasound of the right breast which revealed a 2.1 x 3.6 cm irregular mixed lesion at 6:00 and a 1.6 x 1.3 cm lesion at 9:00. This is also felt to be benign BIRADS 2 and follow-up mammogram of both breasts in 1 year is recommended. The patient had a breast MRI performed in August 2020 in [facility] and those results are going to be provided to us. Patient denies any lumps masses or nodules in her breast. She is not complaini ng of any nipple discharge or skin changes. It is nothing that she is worried about at this time. She is not complaining of any pain in her breast. MRI of the breast was performed on the impression was as follows: 1. Stable postoperative changes in the right breast with no area suspicious signal in the left breast or right breast 2. Enhancing granulation tissue benign in the right axillary region similar to prior BIRADS 2 benign findings 11-23-21 The patient is not concerned about any lumps masses or nodules in either breast. The patient is continuing to take tamoxifen without any concerns. The patient had a mammogram earlier this week in [place] the results are not available to us at this time. She has an appointment with DR. Low on 12-06-21, and Dr. De La Fuente May of 2022. The patient's note from radiation oncology Dr. De La Fuente is reviewed noticed from [id number] Dr[address] 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 Musculoskeletal: Negative Neurologic: Negative Hematologic: Negative ALLERGIES: Seasonal Objective - Vital Signs Vital signs: Intake & Output 11/22/21 11/23/21 11/23/21 18:59 06:59 18:59 Weight 117.934 kg - Exam BMI 39.5 - Constitutional General appearance: Present: cooperative - EENT Eyes: Present: EOMI ENT: Present: hearing grossly normal - Neck Neck: Present: normal ROM - Respiratory Respiratory: bilateral: CTA - Cardiovascular Rhythm: regular Heart sounds: normal: S1, S2 - Gastrointestinal General gastrointestinal: Present: soft - Integumentary Integumentary: Present: normal turgor - Musculoskeletal Musculoskeletal: Present: gait normal - Psychiatric Psychiatric: Present: A&O x's 3, appropriate affect, intact judgment & insight - Additional findings Additional findings: Breast Exam: BRA: 42DDD inspection: bilateral grade 2/3 ptosis Palpation: Right breast: Multi-positional exam fibrocystic changes, post surgical and radiation changes no evidence of recurrent cancer Right axilla: No adenopathy of concern Left breast: Multi-positional exam fibrocystic changes no dominant masses or nodules of concern Left axilla: No adenopathy of concern Assessment and Plan Assessment: Impression: 1. Patient status post right breast lumpectomy and radiation therapy/adjuvant chemotherapy/presently on tamoxifen for stage II a invasive ductal carcinoma 2. Patient had recent bilateral mammogram results pending Plan: 1. Continue tamoxifen 2. Continue follow-up with medical and radiation oncology 3. Follow-up here in 6 months 4. Obtain results of bilateral mammogram CC: Dr. Hooper
== END ==
LOC: WWCWWP 10:04
PROVIDERS: ATTEND Surgery
DX: C50.911 Malignant neoplasm of unspecified site of right female breast (principal); Z17.0 Estrogen receptor positive status [ER+]; Z98.890 Other specified postprocedural states; Z88.1 Allergy status to other antibiotic agents; Z87.891 Personal history of nicotine dependence

== ENCOUNTER → 2025-05-04 | Day surgery (SDC) | payer BC, OTHER ==
--- NOTE | 2025-05-04 08:39 | MM ---
Reason for Exam: Post Procedure Mammogram. Last mammogram was performed 4 year(s) and 7 month(s) ago. Patient History: Menarche at age 12. First Full-Term at age 20. Postmenopausal. Breast cancer, age 37. Patient used Hormonal Contraceptives for 20 years. 10/27/2018, Lumpectomy on the Right side. 2018, Lumpectomy on the Right side. 10/27/2018, Malignant Core Biopsy on the right side. 10/20/2018, Benign Core Biopsy on the right side. 09/29/2018, Malignant Core Biopsy on the right side. 2018, Chemotherapy. 2017, Radiation Therapy on the right side. Prior Study Comparison: 10/06/2019 Bilateral Diagnostic Mammogram, [facility]. 04/07/2020 Right Diagnostic Mammogram, [facility]. 09/15/2020 Bilateral Diagnostic Mammogram, [facility]. Tissue Density: Right: The breasts are heterogeneously dense, which may obscure small masses. Findings: Stable surgical clips in the right breast as well as stable asymmetry upper outer aspect with biopsy clip. No new suspicious masses, calcifications or distortions. Overall Assessment: Benign, BI-RAD 2 Management: Screening Mammogram of the right breast in 1 year. Results were given to the patient verbally at the time of exam. Patient should continue monthly self-breast exams. A clinical breast exam by your physician is recommended on an annual basis. This exam should not preclude additional follow-up of suspicious palpable abnormalities. Note on Merlene scores and lifetime risk: 1. A Merlene score greater than 3% is considered moderate risk. If this is the case, consider specialist referral to assess eligibility for a risk reducing agent. 2. If overall lifetime risk for the development of breast cancer is 20% or higher, the patient may qualify for future screening with alternating mammogram and breast MRI. [facility], , 05/04/2025 8:35 AM. Electronically signed and approved by: Patrice Fermin DO
--- NOTE | 2025-05-10 14:01 | USB ---
Prior Study Comparison: 10/06/2019 Bilateral Diagnostic Mammogram, [facility]. 04/07/2020 Right Diagnostic Mammogram, [facility]. 09/15/2020 Bilateral Diagnostic Mammogram, [facility]. Pathology Description: Location: 10 o'clock. Marker Left Behind. Cores: 5 Skin Nicks: 1 Gauge: 13 The procedure of ultrasound guided core biopsy was explained to the patient. Benefits, alternatives, and risks were discussed. An informed consent was then obtained. The patient was placed in supine positioning for imaging and for the procedure. The overlying skin was prepped and draped in usual sterile fashion. Lidocaine buffered with bicarbonate was used as anesthetic into the skin and subcutaneous tissue up to area of concern in the right breast. A ap was made with surgical scalpel. Under ultrasound guidance, a 12-gauge vacuum assisted biopsy gun device was used to obtain 5 core samples. Following this, a biopsy clip was left in lesion. The patient tolerated the procedure well without any immediate complication. The patient was kept in the radiology department for short stay after the procedure and then discharged home in stable condition. Postprocedure mammogram: The patient was transferred to mammography for physician ordered post procedure mammogram for clip placement verification. Post procedure mammogram demonstrates appropriate placement of clip. Impression: Successful, uncomplicated ultrasound guided core biopsy of the mass in the right breast, full pathology results to follow. [facility], , 05/04/2025 10:37 AM. Pathology Results: Result: Malignant, Invasive ductal carcinoma. Pathology and radiology were reviewed. Findings are concordant. RIGHT BREAST, 10:00, ULTRASOUND GUIDED CORE BIOPSY: Invasive grade 2 ductal carcinoma (see surgical pathology cancer case summary and comment). Overall Assessment: Malignant Management: Surgical Consultation of the right breast. Electronically signed and approved by: Patrice Fermin DO
== END ==
LOC: RADUSWWP 06:51
PROVIDERS: ATTEND Surgery
DX: C50.411 Malignant neoplasm of upper-outer quadrant of right female breast (principal); R92.8 Other abnormal and inconclusive findings on diagnostic imaging of breast; Z78.0 Asymptomatic menopausal state; Z92.0 Personal history of contraception
CPT/HCPCS: 88305; 88342; 88341; 77065; 19083; A4648

== ENCOUNTER → 2025-05-19 | Outpatient (CLI) | payer BC ==
[2025-05-19 07:53] VITALS: BP 130/86; PULSE 76; RESP 16; TEMP 97.9
--- NOTE | 2025-05-19 08:31 | P.GSCN ---
History of Present Illness Consult date: 05/19/25 Reason for Consult: Right breast invasive ductal carcinoma Requesting physician: Connor Hooper History of present illness: Michaela is a 44-year-old female seen in consultation for Dr. Hooper. She had previously been seen in our office with her last visit being on 11-23-2021. At that time it was important to note that she had previously been diagnosed with a right breast invasive ductal carcinoma. She had undergone a right breast lumpectomy and axillary node dissection for a T1 cN2 M0 ER positive CO positive HER2 negative G2 moderately differentiated infiltrating ductal carcinoma. 5 of 7 nodes were positive with extranodal extension. This was done in October 2018. The patient had adjuvant chemotherapy followed by adjuvant radiation therapy. She completed her radiotherapy in [place] in April 2019. At that time she was seen she was on tamoxifen and doing well. A bilateral mammogram from [place] on 11-20-2021 was felt to be BI-RADS 2. Last note from medical oncology was from 02-01-2022 at that time she was doing well on tamoxifen. The patient on 03 04 25 had a bilateral screening mammogram which led to a right breast ultrasound. This was performed on 04 14 25. This revealed a spiculated nodule with shadowing measuring 1.4 x 0.9 x 0.8 cm in the 10 o'clock position of the right breast. She underwent an ultrasound-guided core biopsy of this area on 05 04 25. Pathology revealed an invasive grade 2 ductal carcinoma. This is ER/CO positive HER2 negative. Her original resection was on 10-27-2018. At that time she underwent a right breast needle localization lumpectomy and the margins were negative but close to the anterior inferior margin. The size of the tumor was 2.9 x 2 x 1 cm. Additionally there was some DCIS present with the closest margin being 0.6 mm away from the blue inked anterior margin. She did not feel any lumps masses or nodules of concern prior to her mammogram this time. She is not complaining of any nipple discharge or skin changes. She had a partial hysterectomy approximately a year ago. She states they took both of her ovaries but left her uterus. She was told this was so she could stop her control pills. She stopped the tamoxifen approximately 1 year ago. She did not have genetic testing done. Family history: Maternal grandmother: Lung cancer Patient: Right breast invasive ductal carcinoma Hormonal history: Menarche: 12 G4, P3, 1 tubal breast-fed, yes: First child born at the age of 20 Menopause:. Stopped with chemotherapy Hormones: Patient took tamoxifen for about 7 years Surgical history: Right breast: Lumpectomy axillary node dissection Removal of vaginal septum Appendectomy Cholecystectomy Removal of both ovaries Medical history: Negative Social history: Smoke: Negative Alcohol: Occasional Drugs: Negative Review of Systems - Constitutional Denies fever, Denies weight loss - EENT Eyes: denies blurred vision Ears: deny: decreased hearing, tinnitus Ears, nose, mouth and throat: Denies dysphagia - Breasts bilateral: as per HPI - Cardiovascular Denies chest pain, Denies shortness of breath - Respiratory Denies cough, Denies 7 - Gastrointestinal Reports as per HPI - Genitourinary Genitourinary: Denies dysuria, Denies hematuria Menstruation: Reports as per HPI - Musculoskeletal Musculoskeleta Comment(s): neuropathy from chemotherapy Reports as per HPI - Integumentary Denies rash, Denies unusual bruising - Neurological Reports as per HPI - Psychiatric Reports anxiety, Reports depression - Endocrine Reports as per HPI - Hematologic/Lymphatic Denies easy bleeding, Denies easy bruising - Allergic/Immunologic Reports seasonal allergies Past Medical History Past Medical History: Cancer Additional Past Medical History / Comment(s): Right Breast Cancer 10/2018, raDItion and last chemo 03/2019 History of Any Multi-Drug Resistant Organisms: None Reported Past Surgical History: Appendectomy, Breast Surgery, Cholecystectomy, Hysterectomy Additional Past Surgical History / Comment(s): port a cath, Right Breast Lumpectomy 10/2018 Past Anesthesia/Blood Transfusion Reactions: No Reported Reaction Past Psychological History: Anxiety, Depression Smoking Status: Former smoker Past Alcohol Use History: Occasional Additional Past Alcohol Use History / Comment(s): quit smoking 2012, 11/11-2ppd on & off for 18 yrs. Past Drug Use History: None Reported - Past Family History Mother Additional Family Medical History / Comment(s): Maternal grandmother with breast cancer. Medications and Allergies Home Medications Medication Instructions Recorded Confirmed Type Melatonin 5 mg PO HS 09/11/18 05/19/25 History Vortioxetine Hydrobromide 20 mg PO HS 09/11/18 05/19/25 History [Trintellix] Cyclobenzaprine [Flexeril] 10 mg PO DAILY PRN 10/20/18 05/19/25 History ALPRAZolam [Xanax] 0.25 mg PO TID PRN 10/23/18 05/19/25 History Acetaminophen-Codeine 300-30mg 1 tab PO BID PRN 08/11/19 05/19/25 History [Tylenol w/codeine #3] Famotidine [Pepcid] 40 mg PO HS 09/29/20 05/19/25 History Enalapril [Vasotec] 20 mg PO DAILY 04/26/25 05/19/25 History Allergies Allergy/AdvReac Type Severity Reaction Status Date / Time Quinolones Allergy Rash/Hives Verified 05/19/25 07:48 Surgical - Exam Vital Signs Temp Pulse Resp BP Pulse Ox 97.9 F 76 16 130/86 97 05/19/25 07:48 05/19/25 07:48 05/19/25 07:48 05/19/25 07:48 05/19/25 07:48 - General no distress - Eyes normal ocular movement - ENT no hearing loss - Neck trachea midline - Respiratory normal respiratory effort, clear to auscultation - Cardiovascular Rhythm: regular Heart Sounds: normal: S1, S2 - Abdomen Abdomen: soft, non tender, no guarding, no rigid, no rebound - Integumentary normal turgor - Neurologic no disoriented, no combative - Musculoskeletal normal gait - Psychiatric oriented to time, oriented to person, oriented to place, speech is normal, memory intact Breast Exam: BRA: 44DDD inspection: Right breast slightly smaller than left breast, bilateral grade 2 ptosis, well-healed scar right breast inferior aspect of the breast from prior surgery Palpation: Right breast: Multi positional exam no discrete dominant masses or nodules of concern Right axilla: No adenopathy of concern Left breast: Multi positional exam no discrete dominant masses or nodules of concern, fibrocystic changes Left axilla: No adenopathy of concern Results Mammogram from 03 04 25 as well as ultrasound from 04 14 25 from [place] results reviewed the ultrasound revealed a 1.4 x 0.9 x 0.8 spiculated mass at the 10 o'clock position this was biopsied and this is what was positive for invasive ductal carcinoma Assessment and Plan Assessment: Impression: Recurrent cancer right breast invasive ductal carcinoma Plan: Genetic testing We have discussed mastectomy versus a repeat excision however secondary to the fact that this is radiated tissue and she cannot have radiation again and will most likely be recommended that she undergo mastectomy Presentation of case at tumor board CC: Dr. Hooper
== END ==
LOC: WWCWWP 06:55
PROVIDERS: ATTEND Surgery
DX: Z12.31 Encounter for screening mammogram for malignant neoplasm of breast (principal); C50.911 Malignant neoplasm of unspecified site of right female breast; Z87.891 Personal history of nicotine dependence; Z88.8 Allergy status to other drugs, medicaments and biological substances

== ENCOUNTER → 2025-06-03 | Outpatient (CLI) | payer BC ==
--- NOTE | 2025-06-03 07:34 | USB ---
Patient History: Menarche at age 12. First Full-Term at age 20. Postmenopausal. Breast cancer, age 37. Breast cancer, right, age 44. Patient used Hormonal Contraceptives for 20 years. 05/04/2025, Malignant US biopsy breast VAD RT on the right side. 10/27/2018, Lumpectomy on the Right side. 2018, Lumpectomy on the Right side. 10/27/2018, Malignant Core Biopsy on the right side. 10/20/2018, Benign Core Biopsy on the right side. 09/29/2018, Malignant Core Biopsy on the right side. 2017, Chemotherapy. 2017, Radiation Therapy on the right side. Technique: Method: Targeted. Patient Position: Supine. Prior Study Comparison: 04/07/2020 Right Diagnostic Mammogram, [facility]. 09/15/2020 Bilateral Diagnostic Mammogram, [facility]. 05/04/2025 Right MG diagnostic mammo RT wo CAD, [facility]. Findings: The axilla of the right breast was scanned. Technique utilized:US breast axilla RT Image; Ultrasound imaging of axilla. No evidence for organizing fluid collection or mass. No lymphadenopathy. Overall Assessment: Negative, BI-RAD 1 Management: No follow up is required for this exam. A clinical breast exam by your physician is recommended on an annual basis and results should be correlated with mammographic findings. This exam should not preclude additional follow-up of suspicious palpable abnormalities. Results were given to the patient verbally at the time of exam. [facility], , 06/03/2025 7:29 AM. Electronically signed and approved by: Patrice Fermin DO
== END | disposition home or self-care (01) ==
LOC: RADUSWWP 06:53
PROVIDERS: ATTEND Surgery
DX: Z85.3 Personal history of malignant neoplasm of breast (principal); Z78.0 Asymptomatic menopausal state; Z92.0 Personal history of contraception